=== PATIENT | male | born 1945 ===

== ENCOUNTER 2017-04-16 13:55 | Inpatient (IN) | payer OTHER, MEDICARE ==
[~2017-04-16] VITALS: Ht 182.9 cm; Wt 104.3 kg
[~2017-04-16 13:55] MED LIST: BACLOFEN10 M1 PO; CIPRO500 M1 PO; DILTIAZEM 24HR240 MG PO; HYDRALAZINE HCL50 M1 PO; LISINOPRIL40 M1 PO; LOPRESSOR50 M1 PO; METFORMIN HCL500 M3 PO; MIRALAX17 G1 PO; NEURONTIN300 M1 PO; VITAMIN D31000 UNI1 PO
--- NOTE | 2017-04-16 14:40 | ED CARDIAC/CP/PALPITATIONS ---
History of Present Illness General Chief Complaint: Palpitations Stated Complaint: MUKESH CARDIA Source: patient Exam Limitations: no limitations Allergies Coded Allergies: Penicillins (ANAPHYLAXIS 09/06/15) Reconcile Medications Amlodipine Besylate (Norvasc) 10 MG TABLET 10 MG PO DAILY BP Apixaban (Eliquis) 5 MG TABLET 5 MG PO BID Blood thinner Aspirin (Ecotrin*) 81 MG TABLET.DR 1 TAB PO DAILY HEART/BLOOD (Reported) Cholecalciferol (Vitamin D3) (Vitamin D3) 1,000 UNIT CAPSULE 1 CAP PO DAILY SUPPLEMENT (Reported) Hydralazine HCl 25 MG TABLET 25 MG PO TID blood pressure Labetalol HCl 200 MG TABLET 200 MG PO BID Blood pressure Lisinopril 40 MG TABLET 1 TAB PO DAILY BP (Reported) Metformin HCl 1,000 MG TABLET 1 TAB PO BID DM (Reported) Tamsulosin HCl 0.4 MG CAP.ER.24H 1 CAP PO QPM PROSTATE (Reported) Triage Note: RECEIVED 71 YO MALE BIBA FROM HOME WITH REPORT OF LIGHTHEADEDNESS, DIZZINESS, WEAKNESS AND SHORTNESS OF BREATH STARTED YESTERDAY, WORSE ON EXERTION TODAY. HR 38-40/MINUTE. NO C/O CHEST PAIN Triage Nurses Notes Reviewed? yes HPI: Patient is a 71-year-old male with a past medical history significant for hypertension, diabetes, diabetes, LAWSON noncompliant with CPAP, spinal stenosis status post multiple surgical repair is brought in by ambulance today due to worsening dyspnea and palpitations. Denying dyspnea on exertion roughly 2 weeks ago, he was seen and evaluated by his PCP Dr. Lopez on 04/07/16 who evaluated him and recommended follow-up as an outpatient with a project manager/design manager. He does not establish care with a project manager/design manager and does not recall who he had an appointment with. Since that time patient has noted progressive dyspnea on exertion and today for the first time he experienced dyspnea at rest and palpitations on exertion. He denies any chest pain or chest discomfort. Patient has home health aides who come daily and his aide called EMS as patient was having dyspnea on exertion. EMS reports that the patient was bradycardic to the 30s. (Vinh DUGAN,Alex) Vital Signs & Intake/Output Vital Signs & Intake/Output Vital Signs Date Time Temp Pulse Resp B/P B/P Pulse O2 O2 Flow FiO2 Mean Ox Delivery Rate 04/21 1328 144/74 04/21 1129 60 160/70 01/22 1102 160/70 04/21 0916 61 160/72 04/21 0915 61 160/72 04/21 0653 98.8 64 20 178/88 96 Room Air 04/21 0652 64 178/88 04/20 2303 98.7 62 20 164/90 94 Room Air ED Intake and Output 04/21 0000 04/20 1200 Intake Total 950 Output Total 1850 1025 Balance -900 -1025 Intake, Oral 950 Output, Urine 1850 1025 (Brandi DUGAN,Girma Merchant) Past History Travel History Traveled to [place] past 21 day No Medical History Neurological: NONE EENT: NONE Cardiovascular: hypertension, hyperlipidemia Respiratory: NONE Gastrointestinal: NONE Hepatic: NONE Renal: NONE Musculoskeletal: spinal stenosis Psychiatric: NONE Endocrine: diabetes Blood Disorders: NONE Cancer(s): NONE Surgical History Surgical History: non-contributory Psychosocial History What is your primary language Japanese Tobacco Use: Never used ETOH Use: denies use, occasional use Illicit Drug Use: denies illicit drug use Family History Family History, If Any: DAUGHTER FH: [place] (myocardial infarction), Onset: 30-40. FATHER FH: [place] (myocardial infarction), Onset: 60+. Hx Contributory? Yes (Alex Justice MD) Medical History Any Pertinent Medical History? see below for history (Brandi DUGAN,Girma Merchant) Review of Systems Review of Systems Constitutional: Reports: diaphoresis. Denies: chills, fever. EENTM: Denies: blurred vision, double vision, visual changes. Respiratory: Reports: short of breath. Denies: cough, hemoptysis, sputum production. Cardiovascular: Reports: palpitations. Denies: chest pain, peripheral edema, syncope. GI: Denies: abdominal pain, diarrhea, melena, nausea, bloody stool, vomiting. Genitourinary: Denies: dysuria, frequency, hematuria. (Alex Justice MD) Physical Exam Physical Exam General Appearance: well developed/nourished, no apparent distress, alert, awake Head: atraumatic Eyes: Bilateral: normal appearance, PERRL, EOMI, pale conjunctivae. Ears, Nose, Throat: normal pharynx, normal ENT inspection, hearing grossly normal Neck: normal inspection, supple, full range of motion Respiratory: normal breath sounds, no respiratory distress, lungs clear Cardiovascular: bradycardia, irregularly irregular Peripheral Pulses: 2+ radial (R), 2+ radial (L) Gastrointestinal: normal bowel sounds, soft, non-tender Neurologic/Psych: no motor/sensory deficits, awake, alert, oriented x 3, lip of shank cutter II- XII nml as tested Core Measures ACS in differential dx? No CVA/TIA Diagnosis No Sepsis Present: No Sepsis Focused Exam Completed? No (Alex Justice MD) Progress Differential Diagnosis: atrial fibrillation, sick sinus syndrome Initial ED EKG: AFIB Prior EKG: changed (Alex Justice MD) Plan of Care: Orders Procedure Date/time Status Heart Healthy Diet 04/21 B Active Therapeutic Exercise 04/21 UNK Complete Gait Training 04/21 UNK Complete Discharge Patient 04/21 UNK Active OXYGEN 04/19 UNK Complete OXYGEN DAILY CHARGE 04/19 UNK Complete OXYGEN 04/18 UNK Complete OXYGEN DAILY CHARGE 04/18 UNK Complete Laboratory Tests 04/21/17 0700: Anion Gap 12, Estimated GFR > 60, BUN/Creatinine Ratio 19.0, CBC w Diff NO MAN DIFF REQ, RBC 3.82 L, MCV 80.5, MCH 26.7 L, RDW 15.6 H, MPV 8.1, Gran % 72.4, Lymphocytes % 12.3 L, Monocytes % 9.9 H, Eosinophils % 5.0, Basophils % 0.4, Absolute Granulocytes 4.5, Absolute Lymphocytes 0.8 L, Absolute Monocytes 0.6, Absolute Eosinophils 0.3, Absolute Basophils 0, PUBS MCHC 33.1 Comments: 04/16/2017 3:20:23 PM patient's case discussed with Dr. Kj Ribeiro suggests admission for cardiac monitoring. Rate controlling medications should be discontinued. 04/16/2017 4:19:00 PM I have updated Flower on test results. He is without complaints currently. I have discussed his case with Viviana Garduno MD. (Brandi DUGAN,Girma Merchant) Departure Departure Disposition: STILL A PATIENT Condition: Stable Referrals: John DUGAN,Gage Dos Santos (PCP/Family) Departure Forms: Customer Survey General Discharge Information Prescriptions: Current Visit Scripts Apixaban (Eliquis) 5 MG PO BID #60 TAB Hydralazine HCl 25 MG PO TID #90 TAB Labetalol HCl 200 MG PO BID #60 TAB Amlodipine Besylate (Norvasc) 10 MG PO DAILY #30 TAB (Alex Justice MD) Departure Clinical Impression Primary Impression: Atrial fibrillation with slow ventricular response Admission Note Spoke With: Shaan DUGAN,Viviana Dos Santos Documentation of Exam: Documentation of any treatments & extenuating circumstances including Concerns Regarding Discharge (functional status, medication knowledge or non-compliance, living conditions, etc.) that warrant an admission rather than observation: Patient presents with slow atrial fibrillation, new onset. His bases the patient did very high risk of hypotension, chest pain, syncope and mortality. In addition his atrial fibrillation places him at risk of cardioembolic phenomenon including acute CVA. I feel he can be treated as an outpatient under the circumstances given the high risk of adverse cardiac event. I feel he requires hospitalization for continuous cardiac monitoring, cardiology consultation and discontinuation of any rate controlling medications. If he does not return to normal sinus rhythm than cardiac pacemaker should be considered. Patient will require anticoagulation until atrial fibrillation either resolves or becomes chronically which case he'll need to be placed on chronic anticoagulation therapy. Given his advanced age and medical comorbidities I feel his treatment could potentially be prolonged and complicated. He will require a multiple day hospitalization. Resident Co-Sign Statement Statement: ED Attending supervision documentation- [x] I saw and evaluated the patient. I have also reviewed all the pertinent lab results and diagnostic results. I agree with the findings and the plan of care as documented in the Resident's documentation. Patient evaluated by me upon arrival. Patient presents for evaluation of generalized weakness worsening over the past few days. Physical examination reveals an awake alert gentleman in no acute respiratory distress. Physical examination reveals clear breath sounds bilaterally but irregular bradycardia on auscultation of the heart. [] I have reviewed the ED Record and agree with the Resident's documentation. [] Additions or exceptions (if any) to the Resident's note and plan are summarized below: [] (Brandi DUGAN,Girma Merchant) Critical Care Note Critical Care Note Critical Care Time: non-applicable (Alex Justice MD) ED Attending Observation Initial Observation Note: I have seen and personally examined FLOWER ADAME on 04/21/17 at 1914. I agree with the current emergency department documentation. The disposition (admission or discharge) is uncertain at this time, he needs a period of observation for the following reason(s): The ED Nurse caring for this patient has been personally informed as to what the patient is being observed for. (Alex Justice MD)
[2017-04-16 15:38] LABS: ABSOLUTE BASOPHIL COUNT 0 /CUMM (0.0-0.2); ABSOLUTE EOSINOPHIL COUNT 0.1 /CUMM (0.0-0.7); ABSOLUTE GRANULOCYTE CT 4.1 /CUMM (1.4-6.5); ABSOLUTE LYMPH COUNT 0.9 /CUMM (1.2-3.4); ABSOLUTE MONOCYTE COUNT 0.5 /CUMM (0.10-0.60); BASOPHIL % 0.4 % (0.0-2.0); EOSINOPHIL % 1.8 % (0-5); GRANULOCYTE % 72.1 % (42.2-75.2); HEMATOCRIT 31.2 % (42-52); MEAN CORPUSCULAR HGB 26.3 PG (27.0-31.0); MEAN CORPUSCULAR VOLUME 82.1 FL (80.0-94.0); MEAN PLATELET VOLUME 9.4 FL (7.4-10.4); PLATELET COUNT 231 /CUMM (130-400); RBC DISTRIBUTION WIDTH 16.5 % (11.5-14.5); RED BLOOD CELL CT 3.81 /CUMM (4.70-6.10); WHITE BLOOD CELL COUNT 5.6 /CUMM (4.8-10.8)
[2017-04-16 16:00] LABS: PT 11.2 SEC (9.4-12.5); PTT 40 SEC (25-37)
--- NOTE | 2017-04-16 16:48 | Admission Certification ---
Admission Certification Certification Statement - As attending physician, I certify that at the time of - admission, based on clinical presentation, severity of - symptoms, need for further diagnostic testing and - therapeutic interventions, and risk of adverse outcomes - without in-hospital treatment, in my clinical assessment, - this patient requires an acute hospital stay for a minimum - of two nights or longer. I have also considered psychsocial - factors such as support system, advanced age, financial - issues, cognitive issues, and failed out-patient treatments, - past re-admission history, safety of patient, and lack of - compliance as applicable. Specific rationale supporting this admission is: New onset afib with slow VR
--- NOTE | 2017-04-16 16:50 | PN- Att Addend ---
Attending Addendum Attending Brief Note 71-year-old male with past medical history of diabetes on metformin, BPH, laminectomy and spinal surgery and iron deficiency anemia status post endoscopy and colonoscopy in December 2016. He is also on multiple medications presumably for difficult to control blood pressure. He takes Cardizem, metoprolol, lisinopril and hydralazine for hypertension. He comes into the ER today complaining of lightheadedness redness and dizziness and was found to be in new onset atrial fibrillation with a very slow ventricular rate of 35-45. He is mentating, hemodynamically stable with no obvious heart block on EKG. At this point will bring him into telemetry, stop the Cardizem and metoprolol and watch his heart rate off any AV gaye blocking drugs. A cardiology consult with Dr. Jerry Franco's group has been called in. We will need to start him on anticoagulation as we do not know the duration of the A. fib and his chads score requires anticoagulation. Off note he has a history of iron deficiency anemia but given the fairly normal endoscopy and colonoscopy in December will watch his crit closely.
--- NOTE | 2017-04-16 17:01 | History & Physical ---
Claude DUGAN,[facility] 04/16/17 1701: General Information and HPI History of Present Illness: Mr. Witt is a 71-year-old male with past medical history of hypertension, diabetes mellitus, spinal stenosis, LAWSON noncompliant with CPAP, BPH, and iron deficiency anemia status post endoscopy and colonoscopy in December 2016 who was brought in by ambulance with dizziness and shortness of breath. He first noticed these symptoms on and off about 2 weeks ago. However yesterday the symptoms started getting more intense with shortness of breath, increasing lightheadedness, dizziness. Today, he then noticed that he was getting the symptoms even while sitting down and so he decided to come in for further evaluation. He denies any recent medication changes besides increasing his metformin dose 2 months ago. He says he has been taking his medications appropriately and denies missing or taking too much of any medication. Denies any chest pain, abdominal pain, nausea, vomiting, fever, or chills. Allergies/Medications Allergies: Coded Allergies: Penicillins (ANAPHYLAXIS 09/06/15) Home Med list Aspirin (Ecotrin*) 81 MG TABLET.DR 1 TAB PO DAILY HEART/BLOOD (Reported) Cholecalciferol (Vitamin D3) (Vitamin D3) 1,000 UNIT CAPSULE 1 CAP PO DAILY SUPPLEMENT (Reported) Diltiazem HCl (Diltiazem 24HR ER) 240 MG CAP.ER.24H 1 CAP PO DAILY BP/HEART ( Reported) Hydralazine HCl 50 MG TABLET 1 TAB PO TID BP (Reported) Lisinopril 40 MG TABLET 1 TAB PO DAILY BP (Reported) Metformin HCl 1,000 MG TABLET 1 TAB PO BID DM (Reported) Metoprolol Tartrate (Lopressor) 50 MG TABLET 1 TAB PO BID BP (Reported) Tamsulosin HCl 0.4 MG CAP.ER.24H 1 CAP PO QPM PROSTATE (Reported) Past History Travel History Traveled to [place] past 21 day No Medical History Neurological: NONE EENT: NONE Cardiovascular: hypertension, hyperlipidemia Respiratory: NONE Gastrointestinal: NONE Hepatic: NONE Renal: NONE Musculoskeletal: spinal stenosis Psychiatric: NONE Endocrine: diabetes Blood Disorders: NONE Cancer(s): NONE Surgical History Surgical History: non-contributory Past Family/Social History Family History Relations & Conditions if any DAUGHTER FH: [place] (my[place] infarction), Onset: 30-40. FATHER FH: [place] (myocardial infarction), Onset: 60+. Psychosocial History Smoking Status: Never Smoked ETOH Use: denies use, occasional use Illicit Drug Use: denies illicit drug use Review of Systems Review of Systems Constitutional: Reports: no symptoms. EENTM: Reports: no symptoms. Cardiovascular: Reports: no symptoms. Respiratory: Reports: see HPI. GI: Reports: no symptoms. Genitourinary: Reports: no symptoms. Musculoskeletal: Reports: no symptoms. Skin: Reports: no symptoms. Neurological/Psychological: Reports: see HPI. Hematologic/Endocrine: Reports: no symptoms. Immunologic/Allergic: Reports: no symptoms. All Other Systems: Reviewed and Negative Exam & Diagnostic Data Last 24 Hrs of Vital Signs/I&O Vital Signs Date Time Temp Pulse Resp B/P B/P Pulse O2 O2 Flow FiO2 Mean Ox Delivery Rate 04/16 1551 40 18 127/70 96 Room Air 04/16 1424 98 Room Air 04/16 1402 38 18 113/66 97 Room Air Intake & Output 04/16 1600 04/16 0800 04/16 0000 Intake Total Output Total Balance Patient 230 lb Weight Weight Estimated Measurement Method Physical Exam General Appearance Alert, Oriented X3, Cooperative, No Acute Distress HEENT Atraumatic, PERRLA, EOMI Cardiovascular Normal S1, Normal S2, tameka Lungs Clear to Auscultation, Normal Air Movement Abdomen Normal Bowel Sounds, Soft, No Tenderness Neurological Normal Speech Extremities 2+ pitting edema bilaterally, venous stasis dermatitis Rectal Guiac Negative Last 24 Hrs of Labs/Donnie: Laboratory Tests 04/16/17 1515: Anion Gap 15, Estimated GFR > 60, BUN/Creatinine Ratio 32.0 H, Glucose 147 H, Calcium 9.3, Magnesium 1.8, Troponin I < 0.01, Jku-D-Akjodffited Pept 943 H, PT 11.2, INR 1.07, APTT 40 H, CBC w Diff NO MAN DIFF REQ, RBC 3.81 L, MCV 82.1, MCH 26.3 L, RDW 16.5 H, MPV 9.4, Gran % 72.1, Lymphocytes % 16.5 L, Monocytes % 9.2, Eosinophils % 1.8, Basophils % 0.4, Absolute Granulocytes 4.1, Absolute Lymphocytes 0.9 L, Absolute Monocytes 0.5, Absolute Eosinophils 0.1, Absolute Basophils 0, PUBS MCHC 32.0 L Assessment/Plan Assessment: Mr. Witt is a 71-year-old male with past medical history of hypertension, diabetes mellitus, spinal stenosis, LASWON noncompliant with CPAP, BPH, and iron deficiency anemia status post endoscopy and colonoscopy in December 2016 who was brought in by ambulance with dizziness and shortness of breath. On presentation, vital signs were HR 38, RR 18, BP 113/66, saturating 97% on room air. Laboratories were significant for white blood cell count 5.6, hemoglobin 10.0, MCV 82.1, BUN 32, creatinine 1.0, magnesium 1.8, troponin less than 0.01, BNP 993. He'll be admitted to telemetry and treated for the following problem: 1. Bradycardia 2. New onset atrial fibrillation 3. Normocytic anemia #Bradycardia: Hemodynamically stable. Likely related to medications. Differential also includes sick sinus. -Hold diltiazem, hydralazine, and metoprolol -Telemetry monitoring -Cardiology consult -EKG and trop x3 #New onset atrial fibrillation: Patient says he has never had atrial fibrillation before. Still guaiac negative. CHADS2-VASC score 3, 3.2% risk of stroke per year. -IV heparin #Normocytic anemia: Patient has history of iron deficiency anemia. He had a recent endoscopy and colonoscopy. -Continue to monitor -Consider starting iron #Chronic medical problems: -Continue vitamin D supplementation -Hold oral hypoglycemics -Accu-Cheks and insulin sliding scale DVT prophylaxis with heparin Heart healthy diet Full code As Ranked By This Provider Problem List: 1. Atrial fibrillation with slow ventricular response Core Measures/Misc (12/15) Acute Coronary Syndrome ACS Diagnosis: No Congestive Heart Failure Congestive Heart Failure Diagnosis No Cerebrovascular Accident CVA/TIA Diagnosis: No VTE (View Protocol) VTE Risk Factors Age>40 No Mechanical VTE Prophylaxis d/t N/A MechProphylax Ordered No VTE Pharm Prophylaxis d/t NA PharmProphylax ordered Sepsis (View protocol) Sepsis Present: No Isra DUGAN,Sid 04/16/172101: Resident Review Statement Resident Statement: examined this patient, discussed with paid intern, agreed with paid intern Other Findings: This is a very pleasant 71-year-old gentleman with a past medical history significant for hypertension, type 2 diabetes, spinal stenosis, obstructive sleep apnea noncompliant with CPAP, BPH, iron deficiency anemia presents with two-week history of dyspnea on exertion, and is found to be in atrial fibrillation with bradycardia. No clinical or laboratory signs of infection. Assessment * New onset atrial fibrillation with [id number] score of 3 . The accompanying bradycardia in the setting of A. fib can suggest sick sinus syndrome, however his bradycardia is most likely secondary to the Cardizem and metoprolol (AV gaye blockers). * Symptomatic bradycardia. Acute two-week history of dyspnea on exertion. Given that the patient is on 2 AV gaye blocking agent (metoprolol and cardizem) it is very likely that these medication other possible cause for his bradycardia. Given that the patient has atrial fibrillation and is presenting with bradycardia, sick sinus syndrome is always a concern, however he will have to be off AV gaye khris medications before we consider this possibility. ACS can also cause hypothermia the patient is not exhibiting any chest pain or other associated symptoms of cardiac ischemia. Hypothermia and Lyme disease are other possible causes of bradycardia. * History of iron deficiency anemia * Chronic history of hypertension. * Chronic history of BPH Plan Admit to telemetry for close cardiac monitoring Maintain Pacer pads on patient at bedside for overnight Hold off metoprolol and carvedilol Initial troponin negative, will trend Troponin and EKG 2 to rule out ACS Start heparin anticoagulation for new onset given gage score of 3. Echocardiogram am Cardio consult Hold of BP meds Lisinopril and Hydralazine, if BP goes up will slowly start with Lisinopril hold off metformin and start Novolog SS with accu checks tid, assess in the morning for Levemir based on accu check levels TSH level DVT PPX addressed by Heparin gtt CODE:AMIRAH Garduno MD,Viviana 04/17/17 0753: Attending MD Review Statement Attending Statement Attending MD Statement: examined this patient, discuss w/resident/PA/BUSINESS CONTINUITY PLANNING DIRECTOR, agreed w/resident/PA/BUSINESS CONTINUITY PLANNING DIRECTOR, reviewed EMR data (avail), discussed with nursing, reviewed images Attending Assessment/Plan: See medical brief addendum note dated 04/16/17
[2017-04-16] MEDS ORDERED: ASPIRIN EC81 M1 PO (18:23)
[2017-04-16] MEDS ORDERED: METFORMIN HCL1000 M1 PO (18:26)
[2017-04-16] MEDS ORDERED: TAMSULOSIN HCL0.4 M1 PO (18:27)
[2017-04-16 23:34] VITALS: BP 148/78
[2017-04-17 02:15] LABS: PTT 50 SEC (25-37)
[2017-04-17 03:42] LABS: ABSOLUTE BASOPHIL COUNT 0 /CUMM (0.0-0.2); ABSOLUTE EOSINOPHIL COUNT 0.1 /CUMM (0.0-0.7); ABSOLUTE GRANULOCYTE CT 3.3 /CUMM (1.4-6.5); ABSOLUTE LYMPH COUNT 0.9 /CUMM (1.2-3.4); ABSOLUTE MONOCYTE COUNT 0.4 /CUMM (0.10-0.60); BASOPHIL % 0.3 % (0.0-2.0); EOSINOPHIL % 1.8 % (0-5); GRANULOCYTE % 70.5 % (42.2-75.2); HEMATOCRIT 29.7 % (42-52); MEAN CORPUSCULAR HGB 26.5 PG (27.0-31.0); MEAN CORPUSCULAR HGB CONC 32.2 G/DL (33.0-37.0); MEAN CORPUSCULAR VOLUME 82.3 FL (80.0-94.0); MEAN PLATELET VOLUME 8.4 FL (7.4-10.4); PLATELET COUNT 221 /CUMM (130-400); RBC DISTRIBUTION WIDTH 16.2 % (11.5-14.5); RED BLOOD CELL CT 3.61 /CUMM (4.70-6.10); WHITE BLOOD CELL COUNT 4.6 /CUMM (4.8-10.8)
[2017-04-17 06:38] VITALS: BP 162/90
--- NOTE | 2017-04-17 07:02 | PN- Housestaff ---
See Addendum Subjective Follow-up For: BRADYCARDIA Tele-Events Since Last Visit: SR, 50-90 Subjective: No overnigth events. Slept well. Had some lightheadedness going to bathroom this AM. No SOB, CP, or other issues. Patient is mentioning he was supposed to go for CT scan of his face today outpatient for a fall he had recently. Wondering if it can still be done. Swelling has subsided. Review of Systems Constitutional: Reports: no symptoms. EENTM: Reports: no symptoms. Cardiovascular: Reports: see HPI. Respiratory: Reports: no symptoms. Gastrointestinal: Reports: no symptoms. Genitourinary: Reports: no symptoms. Musculoskeletal: Reports: no symptoms. Skin: Reports: no symptoms. Neurological/Psychological: Reports: no symptoms. Hematologic/Endocrine: Reports: no symptoms. Immunologic/Allergic: Reports: no symptoms. Objective Last 24 Hrs of Vital Signs/I&O Vital Signs Date Time Temp Pulse Resp B/P B/P Pulse O2 O2 Flow FiO2 Mean Ox Delivery Rate 04/17 0638 97.6 79 18 162/90 97 Nasal Cannula 04/17 0000 Nasal 1.0L Cannula 04/16 2334 96.7 71 20 148/78 98 Nasal 2.0L Cannula 04/16 2304 97.3 04/16 2020 98 Nasal 2.0L Cannula 04/16 1946 52 18 162/80 99 Nasal 2.0L Cannula 04/16 1942 93.1 53 20 199/86 99 Nasal 2.0L Cannula 04/16 1745 50 28 177/77 100 Nasal 2.0L Cannula 04/16 1551 40 18 127/70 96 Room Air 04/16 1424 98 Room Air 04/16 1402 38 18 113/66 97 Room Air Intake & Output 04/17 0800 04/17 0000 04/16 1600 Intake Total 276.8 820 Output Total Balance 276.8 820 Intake, IV 176.8 500 Intake, Oral 100 320 Number 1 Bowel Movements Patient 230 lb 230 lb Weight Weight Reported by Patient Estimated Measurement Method Physical Exam General Appearance: Alert, Oriented X3, Cooperative, No Acute Distress HEENT: Atraumatic Cardiovascular: Regular Rate, Normal S1, Normal S2 Lungs: Clear to Auscultation Abdomen: Normal Bowel Sounds, Soft, No Tenderness Extremities: stable Current Medications: Current Medications Sig/Pia Start time Last Medication Dose Route Stop Time Status Admin Acetaminophen 650 MG Q6P PRN 04/16 213 AC PO Cholecalciferol 1,000 IU DAILY 04/17 1000 AC PO Heparin Sodium 3,129 UNIT BOLUS ONE 04/17 0300 DC 04/17 (Porcine) IV 04/17 030 0427 Heparin Sodium 25,000 UNIT Q24H 04/16 1900 AC 04/16 (Porcine) IV 192 Sodium Chloride 500 ML Insulin Aspart 0 TIDAC 04/17 0800 AC SC Oxycodone HCl 5 MG Q6 PRN 04/16 2129 DC PO Oxycodone HCl 10 MG Q6P PRN 04/16 2129 DC PO Last 24 Hrs of Lab/Donnie Results Last 24 Hrs of Labs/Mics: Laboratory Tests 04/17/17 0310: Troponin I 0.02 04/17/17 0310: Anion Gap 12, Estimated GFR > 60, BUN/Creatinine Ratio 28.0 H, CBC w Diff NO MAN DIFF REQ, RBC 3.61 L, MCV 82.3, MCH 26.5 L, RDW 16.2 H, MPV 8.4, Gran % 70.5, Lymphocytes % 18.8 L, Monocytes % 8.6, Eosinophils % 1.8, Basophils % 0.3 , Absolute Granulocytes 3.3, Absolute Lymphocytes 0.9 L, Absolute Monocytes 0.4 , Absolute Eosinophils 0.1, Absolute Basophils 0, PUBS MCHC 32.2 L 04/17/17 0100: APTT 50 H 04/16/17 2150: Troponin I < 0.01 04/16/17 1515: Anion Gap 15, Estimated GFR > 60, BUN/Creatinine Ratio 32.0 H, Glucose 147 H, Calcium 9.3, Magnesium 1.8, Troponin I < 0.01, Dqj-B-Ckpryqtqigp Pept 943 H, TSH 4.320 H, Free T4 1.43, PT 11.2, INR 1.07, APTT 40 H, CBC w Diff NO MAN DIFF REQ, RBC 3.81 L, MCV 82.1, MCH 26.3 L, RDW 16.5 H, MPV 9.4, Gran % 72.1, Lymphocytes % 16.5 L, Monocytes % 9.2, Eosinophils % 1.8, Basophils % 0.4, Absolute Granulocytes 4.1, Absolute Lymphocytes 0.9 L, Absolute Monocytes 0.5, Absolute Eosinophils 0.1, Absolute Basophils 0, PUBS MCHC 32.0 L Assessment/Plan Assessment: Mr. Witt is a 71-year-old male with past medical history of hypertension, diabetes mellitus, spinal stenosis, LAWSON noncompliant with CPAP, BPH, and iron deficiency anemia status post endoscopy and colonoscopy in December 2016 who was brought in by ambulance with dizziness and shortness of breath. Problem List 1. Bradycardia 2. New onset atrial fibrillation 3. Normocytic anemia 4. Recent Fall #Bradycardia: He remained hemodynamically stable all night. His heart rate has since increased and is now in the 70 to 90s. EKG and troponins 3 negative -Hold diltiazem, hydralazine, and metoprolol -Telemetry monitoring -Appreciate cardiology recommendations -Call the PCP to confirm history #New onset atrial fibrillation: Patient says he has never had atrial fibrillation before. Still guaiac negative. CHADS2-VASC score 3, 3.2% risk of stroke per year. However, last night the patient converted to sinus rhythm. He has remained in sinus rhythm since then. -Continue apixiban #Normocytic anemia: Patient has history of iron deficiency anemia. He had a recent endoscopy and colonoscopy. -Iron studies -Continue to monitor -Consider starting iron #Recent fall: Patient says that he recently fell out of bed because of a nightmare. He is supposed to have a CT of his face today. Exam does not reveal any abnormalities. -Talk to the PCP about this. #Chronic medical problems: -Continue vitamin D supplementation -Hold oral hypoglycemics -Accu-Cheks and insulin sliding scale DVT prophylaxis with apixiban Heart healthy diet Full code Problem List: 1. Bradycardia Pain Ratin Pain Location: none Pain Goal: Remain pain free Pain Plan: see a/p Tomorrow's Labs & Rationales: cbc, bep
--- NOTE | 2017-04-17 08:39 | Cons- Cardiology ---
General Information and HPI Consulting Request Date of Consult: 04/17/17 Requested By: Manuel Garnica MD Reason for Consult: Atrial fibrillation and bradycardia Source of Information: patient, old records Exam Limitations: no limitations History of Present Illness: Mr. Witt is a 71-year-old male with past medical history of hypertension, diabetes mellitus, spinal stenosis, LAWSON noncompliant with CPAP, BPH, and iron deficiency anemia status post endoscopy and colonoscopy in December 2016 who was brought in by ambulance with dizziness and shortness of breath. He first noticed these symptoms on and off about 2 weeks ago. However yesterday the symptoms started getting more intense with shortness of breath, increasing lightheadedness, dizziness. Today, he then noticed that he was getting the symptoms even while sitting down and so he decided to come in for further evaluation. He denies any recent medication changes besides increasing his metformin dose 2 months ago. He says he has been taking his medications appropriately and denies missing or taking too much of any medication. Denies any chest pain, abdominal pain, nausea, vomiting, fever, or chills. The above information was obtained from an by the admitting resident. Patient concurs that he had some shortness of breath and lightheadedness on exertion but also on the past 4 weeks. There's been no history of syncope. No chest pain. He usually uses a walker but 4 weeks ago he was quite satisfied that he was walking the grocery store with her walker. He has had a long history of spinal stenosis and 3 operations and nearly a year at rehabilitation. I reviewed his serial records and there is echocardiogram there showed normal left ventricular systolic function with left middle hypertrophy, moderate diastolic dysfunction and pulmonary hypertension. Allergies/Medications Allergies: Coded Allergies: Penicillins (ANAPHYLAXIS 09/06/15) Home Med List: Aspirin (Ecotrin*) 81 MG TABLET.DR 1 TAB PO DAILY HEART/BLOOD (Reported) Cholecalciferol (Vitamin D3) (Vitamin D3) 1,000 UNIT CAPSULE 1 CAP PO DAILY SUPPLEMENT (Reported) Diltiazem HCl (Diltiazem 24HR ER) 240 MG CAP.ER.24H 1 CAP PO DAILY BP/HEART ( Reported) Hydralazine HCl 50 MG TABLET 1 TAB PO TID BP (Reported) Lisinopril 40 MG TABLET 1 TAB PO DAILY BP (Reported) Metformin HCl 1,000 MG TABLET 1 TAB PO BID DM (Reported) Metoprolol Tartrate (Lopressor) 50 MG TABLET 1 TAB PO BID BP (Reported) Tamsulosin HCl 0.4 MG CAP.ER.24H 1 CAP PO QPM PROSTATE (Reported) Current Medications: Current Medications Sig/Pia Start time Last Medication Dose Route Stop Time Status Admin Acetaminophen 650 MG Q6P PRN 04/16 2130 AC PO Cholecalciferol 1,000 IU DAILY 04/17 1000 AC 04/17 PO 0804 Heparin Sodium 3,129 UNIT BOLUS ONE 04/17 0300 DC 04/17 (Porcine) IV 04/17 0301 0427 Heparin Sodium 25,000 UNIT Q24H 04/16 1900 AC 04/16 (Porcine) IV 1921 Sodium Chloride 500 ML Insulin Aspart 0 TIDAC 04/17 0800 AC SC Oxycodone HCl 5 MG Q6 PRN 04/16 2129 DC PO Oxycodone HCl 10 MG Q6P PRN 04/16 2129 DC PO Review of Systems Review of Systems Constitutional: Reports: see HPI. EENTM: Denies: no symptoms. Cardiovascular: Reports: see HPI. Respiratory: Reports: see HPI. GI: Reports: see HPI. Genitourinary: Denies: no symptoms. Musculoskeletal: Denies: no symptoms. Skin: Reports: erythema. Neurological/Psychological: Denies: no symptoms. Hematologic/Endocrine: Reports: see HPI. Immunologic/Allergic: Denies: no symptoms. Past History Travel History Traveled to [place] past 21 day No Medical History Blood Transfusion Hx: No Neurological: NONE EENT: NONE Cardiovascular: hypertension, hyperlipidemia Respiratory: NONE Gastrointestinal: NONE Hepatic: NONE Renal: NONE Musculoskeletal: spinal stenosis Psychiatric: NONE Endocrine: diabetes Blood Disorders: NONE Cancer(s): NONE, ovarian cancer Surgical History Surgical History: laminectomy Family History Relations & Conditions If Any: DAUGHTER FH: [place] (myocardial infarction), Onset: 30-40. FATHER FH: [place] (myocardial infarction), Onset: 60+. Psychosocial History Where Do You Live? [facility] Services at Home: Home Health Aide, Speech Therapy Smoking Status: Never Smoked ETOH Use: denies use, occasional use Illicit Drug Use: denies illicit drug use ECHO Results (as available) Report: [facility] in 2016 showed normal left ventricular systolic function with moderate pulmonary hypertension. Exam & Diagnostic Data Vital Signs and I&O Vital Signs Date Time Temp Pulse Resp B/P B/P Pulse O2 O2 Flow FiO2 Mean Ox Delivery Rate 04/17 0638 97.6 79 18 162/90 97 Nasal Cannula 04/17 0000 Nasal 1.0L Cannula 04/16 2334 96.7 71 20 148/78 98 Nasal 2.0L Cannula 04/16 2304 97.3 04/16 2019 98 Nasal 2.0L Cannula 04/16 1946 52 18 162/80 99 Nasal 2.0L Cannula 04/16 194 93.1 53 20 199/86 99 Nasal 2.0L Cannula 04/16 1745 50 28 177/77 100 Nasal 2.0L Cannula 04/16 1551 40 18 127/70 96 Room Air 04/16 1424 98 Room Air 04/16 1402 38 18 113/66 97 Room Air Intake & Output 04/17 1600 04/17 0800 04/17 0000 04/16 1600 04/16 0800 04/16 0000 Intake Total 276.8 820 Output Total Balance 276.8 820 Intake, IV 176.8 500 Intake, Oral 100 320 Number 1 Bowel Movements Patient 230 lb 230 lb Weight Weight Reported by Patient Estimated Measurement Method Physical Exam: On general exam patient appeared comfortable. Head normocephalic atraumatic Eyes sclera anicteric conjunctiva showed no pallor extraocular muscles were normal neck revealed mild jugular venous distention no carotid bruits no thyroid masses no palpable nodes Chest lungs were clear bilaterally Heart regular rhythm with a 1/6 systolic murmur Abdomen soft no organomegaly Extremities bilateral venous stasis and stasis dermatitis Neurological no gross motor or sensory deficits Labs/Donnei Results: Laboratory Tests 04/17 04/17 04/17 04/16 0310 0310 0100 2150 Chemistry Sodium (137 - 145 mmol/L) 144 Potassium (3.5 - 5.1 mmol/L) 4.5 Chloride (98 - 107 mmol/L) 107 Carbon Dioxide (22 - 30 mmol/L) 26 Anion Gap (5 - 16) 12 BUN (9 - 20 mg/dL) 28 H Creatinine (0.7 - 1.2 mg/dL) 1.0 Estimated GFR (>60 ml/min) > 60 BUN/Creatinine Ratio (7 - 25 %) 28.0 H Troponin I (<0.11 ng/ml) 0.02 < 0.01 Coagulation APTT (25 - 37 SEC) 50 H Hematology CBC w Diff NO MAN DIFF REQ WBC (4.8 - 10.8 /CUMM) 4.6 L RBC (4.70 - 6.10 /CUMM) 3.61 L Hgb (14.0 - 18.0 G/DL) 9.6 L Hct (42 - 52 %) 29.7 L MCV (80.0 - 94.0 FL) 82.3 MCH (27.0 - 31.0 PG) 26.5 L RDW (11.5 - 14.5 %) 16.2 H Plt Count (130 - 400 /CUMM) 221 MPV (7.4 - 10.4 FL) 8.4 Gran % (42.2 - 75.2 %) 70.5 Lymphocytes % (20.5 - 51.1 %) 18.8 L Monocytes % (1.7 - 9.3 %) 8.6 Eosinophils % (0 - 5 %) 1.8 Basophils % (0.0 - 2.0 %) 0.3 Absolute Granulocytes (1.4 - 6.5 /CUMM) 3.3 Absolute Lymphocytes (1.2 - 3.4 /CUMM) 0.9 L Absolute Monocytes (0.10 - 0.60 /CUMM) 0.4 Absolute Eosinophils (0.0 - 0.7 /CUMM) 0.1 Absolute Basophils (0.0 - 0.2 /CUMM) 0 PUBS MCHC (33.0 - 37.0 G/DL) 32.2 L 04/16 1515 Chemistry Sodium (137 - 145 mmol/L) 143 Potassium (3.5 - 5.1 mmol/L) 4.9 Chloride (98 - 107 mmol/L) 105 Carbon Dioxide (22 - 30 mmol/L) 22 Anion Gap (5 - 16) 15 BUN (9 - 20 mg/dL) 32 H Creatinine (0.7 - 1.2 mg/dL) 1.0 Estimated GFR (>60 ml/min) > 60 BUN/Creatinine Ratio (7 - 25 %) 32.0 H Glucose (65 - 99 mg/dL) 147 H Calcium (8.4 - 10.2 mg/dL) 9.3 Magnesium (1.6 - 2.3 mg/dL) 1.8 Troponin I (<0.11 ng/ml) < 0.01 Qmr-A-Lwabfuztvmq Pept (<125 pg/mL) 943 H TSH (0.270 - 4.200 uIU/mL) 4.320 H Free T4 (0.78 - 2.44 ng/dL) 1.43 Coagulation PT (9.4 - 12.5 SEC) 11.2 INR (0.90 - 1.17) 1.07 APTT (25 - 37 SEC) 40 H Hematology CBC w Diff NO MAN DIFF REQ WBC (4.8 - 10.8 /CUMM) 5.6 RBC (4.70 - 6.10 /CUMM) 3.81 L Hgb (14.0 - 18.0 G/DL) 10.0 L Hct (42 - 52 %) 31.2 L MCV (80.0 - 94.0 FL) 82.1 MCH (27.0 - 31.0 PG) 26.3 L RDW (11.5 - 14.5 %) 16.5 H Plt Count (130 - 400 /CUMM) 231 MPV (7.4 - 10.4 FL) 9.4 Gran % (42.2 - 75.2 %) 72.1 Lymphocytes % (20.5 - 51.1 %) 16.5 L Monocytes % (1.7 - 9.3 %) 9.2 Eosinophils % (0 - 5 %) 1.8 Basophils % (0.0 - 2.0 %) 0.4 Absolute Granulocytes (1.4 - 6.5 /CUMM) 4.1 Absolute Lymphocytes (1.2 - 3.4 /CUMM) 0.9 L Absolute Monocytes (0.10 - 0.60 /CUMM) 0.5 Absolute Eosinophils (0.0 - 0.7 /CUMM) 0.1 Absolute Basophils (0.0 - 0.2 /CUMM) 0 PUBS MCHC (33.0 - 37.0 G/DL) 32.0 L Diagnostic Data EKG Results Admission EKG revealed atrial fibrillation with slow ventricular response Subsequent EKG shows sinus rhythm with first-degree AV block and minor ST and T- wave changes. CXR Results Clear lungs. Assessment/Plan Assessment/Plan In summary this 71-year-old gentleman was admitted for the following problems #1. Atrial fibrillation with slow ventricular response. His outpatient medication included combination of diltiazem and metoprolol. It is unclear why he was given this combination as he does not admit to see her waiter/waitress in the past. There is no history of atrial fibrillation in the past. This might be a manifestation of sick sinus syndrome. However diltiazem and metoprolol were and are being held. His present heart rate seems to be around 90. He may benefit from very low dose metoprolol tartrate 12.5 mg twice a day in order to prevent rebound tachycardia. He is currently on IV heparin. He has signed deficiency anemia. His recent GI workup incomplete endoscopy was negative for bleed. Since his creatinine is normal I would start him on Elliquis 5 mg twice a day as his chads Vasc score is greater than 2. Need to check echocardiogram. He is on watch to demonstrate signs that he may need a permanent pacemaker. #2. Hypertension. I would favor changing hydralazine to a combination of amlodipine and and angiotensin receptor khris. I would probably use Benicar 40 mg amlodipine 5 mg for blood pressure control. #3. Iron deficiency anemia #4. Spinal stenosis with multiple spinal operations #5. Dizziness and shortness of breath on exertion. His shortness of breath on exertion may represent an angina equivalent. However he is not demonstrating any objective evidence of ischemia at the moment and after the issue of sick sinus syndrome is settled he might benefit from a nuclear stress test as an outpatient. #6. Sleep apnea with probably secondary pulmonary hypertension also from diastolic left radical dysfunction. Needs to use CPAP and will obtain echocardiogram. #7. Venous stasis from chronic venous insufficiency. Consult Acknowledgment - Thank you for your consult request.
--- NOTE | 2017-04-17 10:29 | PN- Student ---
Subjective Subjective: Chief Complaint:Shortness of breath and lightheadedness on exertion. Source of History:patient,old records Limitations: NONE PMI:Gurvinder Witt is a 71 year old male with a past medical history diabetes on metformin,iron deficiency anemia post endoscopy and colonscopy December 2016,bph, spinal stenosis post laminectomy and spinal surgery,HTN on metoprolol,lisinopril and hydralazine,LAWSON not compliant w/ CPAP . Patient BIBA to the ED today with lightheadness,dizziness and shortness of breath while attempting to walk, and worsens with exertion.Patient reports that 4 weeks earlier he was able to walk around the grocery store comfortably using the cart for support but two weeks ago after approximately 100ft he began to feel fatigued and short of breath,and this was relieved but sitting for a few minutes.Today he noticed even while sitting without exertion he was feeling short of breath and lightheaded and decided to get it further evaluated.Patient reports that he is compliant with his medication and has had no recent medication changes except for an increase in his metformin dose 2 months ago.He follows up with his PCP and does not have a gypsum block setter. Review of Systems Constitutional: Reports: fatigue,light headed EENTM: Reports: no symptoms. Cardiovascular: Reports: no chest pain. Respiratory: Reports: SOB GI: Reports: no symptoms. Genitourinary: Reports: no symptoms. Musculoskeletal: Reports: no symptoms. Skin: Reports: Lower limb bilaterally skin is dry and scaly. Neurological/Psychological: Reports: see HPI. Hematologic/Endocrine: Reports: no symptoms. Immunologic/Allergic: Reports: no symptoms. All Other Systems: Reviewed and Negative Allergies: Penicillin (Anaphylaxis) Home Med list Aspirin (Ecotrin*) 81 MG TABLET.DR 1 TAB PO DAILY HEART/BLOOD (Reported) Cholecalciferol (Vitamin D3) (Vitamin D3) 1,000 UNIT CAPSULE 1 CAP PO DAILY SUPPLEMENT (Reported) Diltiazem HCl (Diltiazem 24HR ER) 240 MG CAP.ER.24H 1 CAP PO DAILY BP/HEART ( Reported) Hydralazine HCl 50 MG TABLET 1 TAB PO TID BP (Reported) Lisinopril 40 MG TABLET 1 TAB PO DAILY BP (Reported) Metformin HCl 1,000 MG TABLET 1 TAB PO BID DM (Reported) Metoprolol Tartrate (Lopressor) 50 MG TABLET 1 TAB PO BID BP (Reported) Tamsulosin HCl 0.4 MG CAP.ER.24H 1 CAP PO QPM PROSTATE (Reported) PAST MEDICAL HISTORY Medical History Neurological: NONE EENT: NONE Cardiovascular: hypertension, hyperlipidemia Respiratory: NONE Gastrointestinal: NONE Hepatic: NONE Renal: NONE Musculoskeletal: spinal stenosis Psychiatric: NONE Endocrine: diabetes Blood Disorders: iron deficinecy anemia Cancer(s): NONE Surgical History Surgical History: laminaectomy and spinal surgery for spinal stenosis Family History Relations & Conditions if any DAUGHTER [place] (myocardial infarction), Onset: 30-40. FATHER [place] (myocardial infarction), Onset: 60+ Stroke (COD 89y/o) Social History Patient lives in an assisted living home with an aide.He is able to ambulate with the aid of a walker and carry out self care independently. Smoking History -denies smoking Alcohol -denies use Recreational drugs-denies use Objective Objective: Vital Signs Date Time Temp Pulse Resp B/P B/P Pulse O2 O2 Flow FiO2 Mean Ox Delivery Rate 04/16 1745 50 28 177/77 100 Nasal 2.0L Cannula 04/16 1551 40 18 127/70 96 Room Air 04/16 1424 98 Room Air 04/16 1402 38 18 113/66 97 Room Air Physical Exam: General Appearance Alert, Oriented X3, Cooperative, No Acute Distress HEENT Atraumatic, PERRLA,conjunctiva was normal in color Cardiovascular Normal S1, Normal S2, bradycardic( pulse on admission 38 trended up to 50) Lungs Clear to Auscultation Abdomen Normal Bowel Sounds, Soft, No Tender Neurological Normal Speech Extremities 2+ pitting edema bilaterally, venous stasis dermatitis Rectal Guiac Negative Results Results: Laboratory Tests 04/16/17 1515: Anion Gap 15, Estimated GFR > 60, BUN/Creatinine Ratio 32.0 H, Glucose 147 H, Calcium 9.3, Magnesium 1.8, Troponin I < 0.01, Qwl-Q-Kflxubhfxnc Pept 943 H, TSH 4.320 H, Free T4 1.43, PT 11.2, INR 1.07, APTT 40 H, CBC w Diff NO MAN DIFF REQ, RBC 3.81 L, MCV 82.1, MCH 26.3 L, RDW 16.5 H, MPV 9.4, Gran % 72.1, Lymphocytes % 16.5 L, Monocytes % 9.2, Eosinophils % 1.8, Basophils % 0.4, Absolute Granulocytes 4.1, Absolute Lymphocytes 0.9 L, Absolute Monocytes 0.5, Absolute Eosinophils 0.1, Absolute Basophils 0, PUBS MCHC 32.0 L Assessment/Plan Assessment: Gurvinder Witt is a 71 year old male with a past medical history diabetes on metformin,iron deficiency anemia post endoscopy and colonscopy December 2016,bph, spinal stenosis post laminectomy and spinal surgery,HTN on metoprolol,lisinopril and hydralazine,LAWSON not compliant w/ CPAP brought in by ambulance with dizziness and shortness of breath. On presentation, vital signs were HR 38, RR 18, BP 113/66, saturating 97% on room air. Laboratories were significant for white blood cell count 5.6, hemoglobin 10.0, MCV 82.1, BUN 32, creatinine 1.0, magnesium 1.8, troponin less than 0.01, BNP 993. Patient's EKG showed atrial fibrillation w/accompanying bradycardia.This seems to be a new onset AFibb as patient reports that he does not have a gypsum block setter and his PCP Dr. Lopez has never mentioned those words or described anything as such with his previous EKG's and that they have all been non incidental.Patient to be admitted to telemetry. Problem List: Bradycardia Atrial Fibrillation Iron Deficiency Anemia Plan: * Bradycardia Patient presents with to the ED with a pulse of 38.His bradycardia can be attributed to his current medication as metoprolol and Diltiazem both decrease heart rate and blood pressure.Given the patients new onset A FIBB in the setting of bradycardia sick sinus syndrome is also a concern but would need to take patient of his current heart meds to determine this possibility.Given the patients initial symptoms of progressive dypsnea on exertion on can also consider ACS but unlikely as the patient has no symptoms associated with cardiac ischemia such as chest pain,retrosternal chest discomfort and his troponin lab is negative. -Hold diltiazem, hydralazine, and metoprolol -Telemetry monitoring -Cardiology consult -EKG and trop x2 -maintain pacer pads on patient overnight -start heparin IV for new onset A FIBB and CHADS VASC score of 3 * New onset atrial fibrillation: Patient says he has never had atrial fibrillation before. Guiac stool test was done and found to be negative.CHADS VASC score was 3 hence anticoagulation was started. -IV heparin -cardio consult -ECHO -Call PCP and obtain records of previous cardiac history * Iron Deficiency anemia: Patient has history of iron deficiency anemia. He had a recent endoscopy and colonoscopy in DEC 2016 that was negative for any bleeds. -Continue to monitor -Consider starting iron -Obtain Colonscopy and endoscopy report #Chronic medical problems: -Continue vitamin D supplementation -Hold oral hypoglycemics -Accu-Cheks and insulin sliding scale DVT prophylaxis with heparin Heart healthy diet Full code
--- NOTE | 2017-04-17 14:30 | PN- Student ---
Subjective Subjective: Progress Note Follow up for : Bradycardia No overnight events patient reports that he slept like a baby and has no new complaints. Review of Systems Constitutional: Reports: no symptoms. EENTM: Reports: no symptoms. Cardiovascular: Reports:no symptoms Respiratory: Reports: no symptoms. Gastrointestinal: Reports: no symptoms. Genitourinary: Reports: no symptoms. Musculoskeletal: Reports: no symptoms. Skin: Reports: no symptoms. Neurological/Psychological: Reports: no symptoms. Hematologic/Endocrine: Reports: no symptoms. Immunologic/Allergic: Reports: no symptoms. Objective Objective: Vital Signs Date Time Temp Pulse Resp B/P B/P Pulse O2 O2 Flow FiO2 Mean Ox Delivery Rate 04/17 0800 Nasal 1.0L Cannula 04/17 0638 97.6 79 18 162/90 97 Nasal Cannula 04/17 0000 Nasal 1.0L Cannula Intake & Output 04/17 0800 04/17 0000 Intake Total 276.8 820 Output Total Balance 276.8 820 Intake, IV 176.8 500 Intake, Oral 100 320 Number 1 Bowel Movements Output, Urine Patient 230 lb Weight Weight Reported by Patient Measurement Method Current Medications Sig/Pia Start time Last Medication Dose Stop Time Status Admin Acetaminophen 650 MG Q6P PRN 04/16 2130 AC (Tylenol) Cholecalciferol 1,000 IU DAILY 04/17 1000 AC 04/17 (Vitamin D) 0804 Insulin Aspart 0 TIDAC 04/17 0800 AC 04/17 (NovoLOG) 1204 Apixaban(Eliquis) 5MG BID PO 04/17/17 AC Metoprolol Tartrate 12.5 MG BID 04/17 1000 AC 04/17 (Lopressor) 0930 Physical Exam General Appearance: Alert, Oriented X3, Cooperative, No Acute Distress HEENT: PERRLA Cardiovascular: radial pulse bounding,Regular Rate, Normal S1, Normal S2 Lungs: Clear to Auscultation Abdomen: Normal Bowel Sounds, Soft, No Tenderness Extremities: Lower limbs are swollen and red bilaterally with skin changes that point toward venous stasis changes,+1 non pitting edema. Results Results: Laboratory Tests 04/17/17 0310: Troponin I 0.02 04/17/17 0310: Anion Gap 12, Estimated GFR > 60, BUN/Creatinine Ratio 28.0 H, CBC w Diff NO MAN DIFF REQ, RBC 3.61 L, MCV 82.3, MCH 26.5 L, RDW 16.2 H, MPV 8.4, Gran % 70.5, Lymphocytes % 18.8 L, Monocytes % 8.6, Eosinophils % 1.8, Basophils % 0.3 , Absolute Granulocytes 3.3, Absolute Lymphocytes 0.9 L, Absolute Monocytes 0.4 , Absolute Eosinophils 0.1, Absolute Basophils 0, PUBS MCHC 32.2 L 04/17/17 0100: APTT 50 H 04/16/17 2150: Troponin I < 0.01 04/16/17 1515: Anion Gap 15, Estimated GFR > 60, BUN/Creatinine Ratio 32.0 H, Glucose 147 H, Calcium 9.3, Magnesium 1.8, Troponin I < 0.01, Crc-J-Oxwtrfosodb Pept 943 H, TSH 4.320 H, Free T4 1.43, PT 11.2, INR 1.07, APTT 40 H, CBC w Diff NO MAN DIFF REQ, RBC 3.81 L, MCV 82.1, MCH 26.3 L, RDW 16.5 H, MPV 9.4, Gran % 72.1, Lymphocytes % 16.5 L, Monocytes % 9.2, Eosinophils % 1.8, Basophils % 0.4, Absolute Granulocytes 4.1, Absolute Lymphocytes 0.9 L, Absolute Monocytes 0.5, Absolute Eosinophils 0.1, Absolute Basophils 0, PUBS MCHC 32.0 L Assessment/Plan Assessment: Gurvinder Witt is a 71 year old male with a past medical history diabetes on metformin,iron deficiency anemia post endoscopy and colonscopy December 2016,bph, spinal stenosis post laminectomy and spinal surgery,HTN on metoprolol,lisinopril and hydralazine,LAWSON not compliant w/ CPAP brought in by ambulance with dizziness and shortness of breath. Problem List * Bradycardia * New Onset Atrial Fibrillation * Iron Deficiency Anemia Plan: * Bradycardia: Patient remained stable all night.His heart rate has since increased and is now in 70-90 range.Rhythm has converted to sinus.EKG and Troponin x3 was found to be negative negating that his event was ACS related. -continue telemetry -hold diltiazem and hydralazine -appreciate cardiology reccomendations -call PCP to confirm PMH * New onset A FIBB Patient reports that he does not have a history of A Fibb.Guiac is negative.CHADS-VASC score is 3.Patient last night has converted to sinus rhythm last night and has remained that way to date. -continue anticoagulation Iron Deficiency Anemia -Continue to monitor #Chronic medical problems: -Continue vitamin D supplementation -Accu-Cheks and insulin sliding scale DVT prophylaxis with apixiban Heart healthy diet Full code
--- NOTE | 2017-04-17 15:32 | CT SCAN REPORT ---
EXAMINATION: CT SINUS WITHOUT CONTRAST CLINICAL INFORMATION: Facial swelling. Status post fall at home. COMPARISON: None TECHNIQUE: CT of the maxillofacial bones was performed without intravenous contrast. Multiplanar reformats were rendered and reviewed. DLP: 758 mGy-cm FINDINGS: There is no preseptal soft tissue swelling. The orbital schuster and orbital rims are intact. There is no infiltration of the intraorbital fat or evidence of retrobulbar hematoma. The extraocular muscles and optic nerve sheath complexes are symmetric and normal in appearance. The globes are normal and symmetric. The zygomas and zygomaticomaxillary buttresses are intact. The nasal bones and ufpf-hpkhea-qmheoco complex are intact. The maxillary alveolus and hard palate are intact. The mandible is intact with mandibular condyles normally positioned within the glenoid fossa. The osseous structures of the central skull base are intact. The left maxillary sinus is completely opacified and the schuster are sclerotic and thickened reflecting osteitis from chronic inflammation. The left ostiomeatal unit is opacified. An underlying polypoid lesion is not excluded. There is lucency surrounding the roots of ADA 14, 15, and 16 compatible with apical abscess/granuloma with dehiscence into the floor of the maxillary sinus in addition to dehiscence of the buccal plate. Lucency surrounding the roots of ADA 1, 2, and 3 is also noted without extension into the maxillary sinus. Numerous large carious lesions are present predominantly involving the posterior maxillary dentition. IMPRESSION: 1. No evidence of maxillofacial fracture. The orbital schuster and rims are intact. 2. 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 An underlying polyp cannot be excluded. 3. Severe periodontal, periapical, and endodontal disease predominantly involving the left and right maxillary dentition with apical abscess/granuloma extending through the floor of the left maxillary sinus.
--- NOTE | 2017-04-17 18:46 | ECHOCARDIOGRAM REPORT ---
FLOWER ADAME Age: 71 : 1945 Gender: M Exam Date: 04/17/2017 11:27 Exam Location: [address] Ht (in): 72 Wt (lb): 230 BSA: 2.33 BP: 162 / 90 Ordering Physician: Sid Dhaliwal MD Referring Physician: Sid Dhaliwal MD Technologist: Bernardino Vázquez [facility] Room Number: 172-1 Indications: AFIB/FLUTTER Rhythm: Sinus Technical Quality: fair FINDINGS Left Ventricle Normal size left ventricle. Left ventricular wall thickness mildly increased. Normal left ventricular ejection fraction estimated at 60-65%. "pseudonormal" filling pattern of the left ventricle for age (stage 2 diastolic dysfunction). Right Ventricle Normal right ventricular size and function. Right Atrium Normal right atrial size. Left Atrium Mild left atrial dilatation. Mitral Valve Mild mitral annular calcification. Mild mitral regurgitation. Aortic Valve Aortic valve is normal in structure and function. Tricuspid Valve Tricuspid valve is normal in structure and function. Mild tricuspid regurgitation. Right ventricular systolic pressure estimated to be elevated at 50 mmHg. Pulmonic Valve Pulmonic valve not well visualized, grossly normal. Pericardium No pericardial effusion. Great Vessels Normal size aortic root and proximal ascending aorta. CONCLUSIONS Normal left ventricular systolic function with mild concentric hypertrophy. Mild left atrial enlargement. Type2 diastolic dysfunction. Moderate Pulmonary hypertension. Jerry Garduno M.D. (Electronically Signed) Final Date: 17 April 2017 18:45 MEASUREMENTS (Male / Female) Normal Values 2D ECHO LV Diastolic Diameter PLAX 5.0 cm 4.2 - 5.9 / 3.9 - 5.3 cm LV Systolic Diameter PLAX 3.4 cm 2.1 - 4.0 cm LV Fractional Shortening PLAX 32.0 % 25 - 46 % LV Ejection Fraction 2D Teich 59.9 % IVS Diastolic Thickness 1.3 cm LVPW Diastolic Thickness 1.3 cm LV Relative Wall Thickness 0.5 LVOT Diameter 1.7 cm Aortic Root Diameter 3.2 cm LA Systolic Diameter LX 4.3 cm 3.0 - 4.0 / 2.7 - 3.8 cm LA Volume 93.0 cm 18 - 58 / 22 - 52 cm Ascending Aorta Diameter 3.1 cm DOPPLER AV Peak Velocity 176.0 cm/s AV Peak Gradient 12.4 mmHg AV Mean Velocity 112.0 cm/s AV Mean Gradient 6.0 mmHg AV Velocity Time Integral 34.8 cm LVOT Peak Velocity 114.0 cm/s LVOT Peak Gradient 5.2 mmHg LVOT Mean Velocity 70.4 cm/s LVOT Mean Gradient 2.0 mmHg LVOT Velocity Time Integral 25.5 cm LVOT Stroke Volume 57.9 cm AV Area Cont Eq vti 1.7 cm AV Area Cont Eq pk 1.5 cm MV Peak Velocity 134.0 cm/s MV Peak Gradient 7.2 mmHg MV Mean Velocity 79.1 cm/s MV Mean Gradient 3.0 mmHg Mitral E Point Velocity 124.0 cm/s Mitral A Point Velocity 110.0 cm/s Mitral E to A Ratio 1.1 MV PHT Velocity 139.0 cm/s MV Deceleration [place] 661.0 cm/s MV Pressure Half Time 63.1 ms MV Area PHT 3.5 cm MV Deceleration Time 246.0 ms TR Peak Velocity 336.0 cm/s TR Peak Gradient 45.2 mmHg Right Atrial Pressure 5.0 mmHg Pulmonary Artery Systolic Pressu 50.2 mmHg Right Ventricular Systolic Press 50.2 mmHg PV Peak Velocity 97.9 cm/s PV Peak Gradient 3.8 mmHg PV Mean Velocity 63.8 cm/s PV Mean Gradient 2.0 mmHg PV Velocity Time Integral 21.3 cm LV E' Lateral Velocity 9.2 cm/s Mitral E to LV E' Lateral Ratio 13.5 LV E' Septal Velocity 8.7 cm/s Mitral E to LV E' Septal Ratio 14.3
[2017-04-18 01:21] VITALS: BP 168/90
[2017-04-18 06:09] VITALS: BP 170/84
--- NOTE | 2017-04-18 07:02 | PN- Housestaff ---
See Addendum Subjective Follow-up For: bRADYCARIDA Tele-Events Since Last Visit: NR, 50-80 Subjective: No overnight events. He slept well. No CP, SOB, or other issues. Review of Systems Constitutional: Reports: no symptoms. EENTM: Reports: no symptoms. Cardiovascular: Reports: no symptoms. Respiratory: Reports: no symptoms. Gastrointestinal: Reports: no symptoms. Genitourinary: Reports: no symptoms. Musculoskeletal: Reports: no symptoms. Skin: Reports: no symptoms. Neurological/Psychological: Reports: no symptoms. Hematologic/Endocrine: Reports: no symptoms. Immunologic/Allergic: Reports: no symptoms. Objective Last 24 Hrs of Vital Signs/I&O Vital Signs Date Time Temp Pulse Resp B/P B/P Pulse O2 O2 Flow FiO2 Mean Ox Delivery Rate 04/18 0609 98.8 71 18 170/84 96 04/18 0133 99.5 04/18 0121 66 168/90 04/18 0019 99.9 04/18 0000 Nasal 2.0L Cannula 04/17 2217 99.3 86 16 94 Nasal 1.0L Cannula 04/17 2054 87 172/90 04/17 1900 87 172/90 04/17 1600 Nasal 1.0L Cannula 04/17 1206 87 172/90 04/17 0930 94 186/90 04/17 0800 Nasal 1.0L Cannula Intake & Output 04/18 0800 04/18 0000 04/17 1600 Intake Total 300 450 Output Total 700 850 500 Balance -400 -850 -50 Intake, Oral 300 450 Number 1 1 Bowel Movements Output, Urine 700 850 500 Physical Exam General Appearance: Alert, Oriented X3, Cooperative, No Acute Distress Cardiovascular: Regular Rate, Normal S1, Normal S2 Lungs: Clear to Auscultation Abdomen: Normal Bowel Sounds, Soft, No Tenderness Extremities: stable Current Medications: Current Medications Sig/Pia Start time Last Medication Dose Route Stop Time Status Admin Acetaminophen 650 MG ONCE ONE 04/18 0015 DC 04/18 PO 04/18 001 0019 Acetaminophen 650 MG Q6P PRN 04/16 2130 AC PO Amlodipine Besylate 5 MG DAILY 04/17 1145 AC 04/17 PO 1206 Apixaban 5 MG BID 04/17 1000 AC 04/17 PO 2055 Cholecalciferol 1,000 IU DAILY 04/17 1000 AC 04/17 PO 0804 Heparin Sodium 25,000 UNIT Q24H 04/16 1900 DC 04/16 (Porcine) IV 1921 Sodium Chloride 500 ML Insulin Aspart 0 TIDAC 04/17 0800 AC 04/17 SC 1204 Lisinopril 40 MG DAILY 04/18 1000 AC PO Lisinopril 40 MG ONCE ONE 04/17 1315 DC 04/17 PO 04/17 1316 1900 Losartan Potassium 100 MG DAILY 04/17 1146 DC PO Metoprolol Tartrate 12.5 MG BID 04/17 1000 AC 04/17 PO 2054 Patient Medication 1 ED ONE ONE 04/17 1145 DC 04/17 Teaching ED 04/17 1146 1204 Last 24 Hrs of Lab/Donnie Results Last 24 Hrs of Labs/Mics: Laboratory Tests 04/18/17 0610: Sodium Pending, Potassium Pending, Chloride Pending, Carbon Dioxide Pending, Anion Gap Pending, BUN Pending, Creatinine Pending, BUN/Creatinine Ratio Pending , CBC w Diff Pending, WBC Pending, RBC Pending, Hgb Pending, Hct Pending, MCV Pending, MCH Pending, RDW Pending, Plt Count Pending, MPV Pending, PUBS MCHC Pending 04/17/17 0900: APTT Cancelled Assessment/Plan Assessment: Mr. Witt is a 71-year-old male with past medical history of hypertension, diabetes mellitus, spinal stenosis, LAWSON noncompliant with CPAP, BPH, and iron deficiency anemia status post endoscopy and colonoscopy in December 2016 who was brought in by ambulance with dizziness and shortness of breath. Problem List 1. Bradycardia 2. New onset atrial fibrillation 3. Normocytic anemia 4. Recent Fall 5. Hypertension #Bradycardia: He remained hemodynamically stable. His heart rate has since increased and is now in the 70 to 90s. EKG and troponins 3 negative. -Stop diltiazem, hydralazine, and metoprolol -Telemetry monitoring -Appreciate cardiology recommendations #New onset atrial fibrillation: Patient says he has never had atrial fibrillation before. Still guaiac negative. CHADS2-VASC score 3, 3.2% risk of stroke per year. However, last night the patient converted to sinus rhythm. He has remained in sinus rhythm since then. -Continue apixiban #Hypertension: Patient has been hypertensive, this morning 170/84. -Appreciate cardiology recommendations -Continue lisinopril and amlodipine -Start labetelol #Normocytic anemia: Patient has history of iron deficiency anemia. He had a recent endoscopy and colonoscopy. Iron studies normal here. -Continue to monitor #Recent fall: Patient says that he recently fell out of bed because of a nightmare. We performed the facial CT yesterday that showed severe dental disease but no acute fracture. -Encourage patient to have dental follow-up #Chronic medical problems: -Continue vitamin D supplementation -Hold oral hypoglycemics -Accu-Cheks and insulin sliding scale DVT prophylaxis with apixiban Heart healthy diet Full code Problem List: 1. Bradycardia Pain Ratin Pain Location: none Pain Goal: Remain pain free Pain Plan: see a/p Tomorrow's Labs & Rationales: none
--- NOTE | 2017-04-18 07:35 | PN- Student ---
Subjective Subjective: Progress Note: Bradycardia Tele Events: NS ,50-90 No overnight events.Patient reports that he slept well is in no pain. Review of Systems Constitutional: Reports: no symptoms. EENTM: Reports: no symptoms. Cardiovascular: Reports: no symptoms. Respiratory: Reports: no symptoms. Gastrointestinal: Reports: no symptoms. Genitourinary: Reports: no symptoms. Musculoskeletal: Reports: no symptoms. Skin: Reports: no symptoms. Neurological/Psychological: Reports: no symptoms. Hematologic/Endocrine: Reports: no symptoms. Immunologic/Allergic: Reports: no symptoms. Objective Objective: Vital Signs Date Time Temp Pulse Resp B/P B/P Pulse O2 O2 Flow FiO2 Mean Ox Delivery Rate 04/18 0609 98.8 71 18 170/84 96 04/18 0133 99.5 04/18 0121 66 168/90 04/18 0019 99.9 04/18 0000 Nasal 2.0L Cannula 04/17 2217 99.3 86 16 94 Nasal 1.0L Cannula 04/17 2054 87 172/90 04/17 1900 87 172/90 Intake & Output 04/18 1600 04/18 0800 04/18 0000 Intake Total 300 Output Total 700 850 Balance -400 -850 Intake, Oral 300 Number 1 Bowel Movements Output, Urine 700 850 Physical Exam: General Appearance: cachectic,Alert, Oriented X3, Cooperative, No Acute Distress Cardiovascular: Regular Rate, Normal S1, Normal S2 Lungs: Clear to Auscultation Abdomen: Normal Bowel Sounds, Soft, tender Extremities: stable Current Medications Sig/Pia Start time Last Medication Dose Route Stop Time Status Admin Acetaminophen 650 MG ONCE ONE 04/18 0015 DC 04/18 PO 04/18 0016 0019 Acetaminophen 650 MG Q6P PRN 04/16 2130 AC PO Amlodipine Besylate 5 MG DAILY 04/17 1145 AC 04/17 PO 1206 Apixaban 5 MG BID 04/17 1000 AC 04/17 PO 2055 Cholecalciferol 1,000 IU DAILY 04/17 1000 AC 04/17 PO 0804 Heparin Sodium 25,000 UNIT Q24H 04/16 1900 DC 04/16 (Porcine) IV 1921 Sodium Chloride 500 ML Insulin Aspart 0 TIDAC 04/17 0800 AC 04/17 SC 1204 Lisinopril 40 MG DAILY 04/18 1000 AC PO Lisinopril 40 MG ONCE ONE 04/17 1315 DC 04/17 PO 04/17 1316 1900 Losartan Potassium 100 MG DAILY 04/17 1146 DC PO Metoprolol Tartrate 12.5 MG BID 04/17 1000 AC 04/17 PO 2053 Patient Medication 1 ED ONE ONE 04/17 1145 CO 04/17 Teaching ED 04/17 1146 1204 Results Results: Laboratory Tests 04/18/17 0610: Anion Gap 12, Estimated GFR > 60, BUN/Creatinine Ratio 20.9, Iron 54, TIBC 397, Ferritin Pending, CBC w Diff Pending, WBC Pending, RBC Pending, Hgb Pending, Hct Pending, MCV Pending, MCH Pending, RDW Pending, Plt Count Pending, MPV Pending, PUBS MCHC Pending 04/17/17 0900: APTT Cancelled 04/17/17 0310: Troponin I 0.02 04/17/17 0310: Anion Gap 12, Estimated GFR > 60, BUN/Creatinine Ratio 28.0 H, CBC w Diff NO MAN DIFF REQ, RBC 3.61 L, MCV 82.3, MCH 26.5 L, RDW 16.2 H, MPV 8.4, Gran % 70.5, Lymphocytes % 18.8 L, Monocytes % 8.6, Eosinophils % 1.8, Basophils % 0.3 , Absolute Granulocytes 3.3, Absolute Lymphocytes 0.9 L, Absolute Monocytes 0.4 , Absolute Eosinophils 0.1, Absolute Basophils 0, PUBS MCHC 32.2 L 04/17/17 0100: APTT 50 H 04/16/17 2150: Troponin I < 0.01 04/16/17 1515: Anion Gap 15, Estimated GFR > 60, BUN/Creatinine Ratio 32.0 H, Glucose 147 H, Calcium 9.3, Magnesium 1.8, Troponin I < 0.01, Dmt-A-Kzkwxuaarxb Pept 943 H, TSH 4.320 H, Free T4 1.43, PT 11.2, INR 1.07, APTT 40 H, CBC w Diff NO MAN DIFF REQ, RBC 3.81 L, MCV 82.1, MCH 26.3 L, RDW 16.5 H, MPV 9.4, Gran % 72.1, Lymphocytes % 16.5 L, Monocytes % 9.2, Eosinophils % 1.8, Basophils % 0.4, Absolute Granulocytes 4.1, Absolute Lymphocytes 0.9 L, Absolute Monocytes 0.5, Absolute Eosinophils 0.1, Absolute Basophils 0, PUBS MCHC 32.0 L Assessment/Plan Assessment: Gurvinder Witt is a 71 year old male with a past medical history diabetes on metformin,iron deficiency anemia post endoscopy and colonscopy December 2016,bph, spinal stenosis post laminectomy and spinal surgery,HTN on metoprolol,lisinopril and hydralazine,LAWSON not compliant w/ CPAP brought in by ambulance with dizziness and shortness of breath. Problem List * Bradycardia * New Onset Atrial Fibrillation * hypertention * Anemia * Recent Fall Plan: * Bradycardia: Patient remained stable all night.His heart rate has since increased and is now in 70-90 range.Rhythm has converted to sinus.EKG and Troponin x3 was found to be negative negating that his event was ACS related. -continue telemetry -hold diltiazem and hydralazine -appreciate cardiology reccomendations -continue low dose metoprolol 12.5mg -nuclear stress test outpatient -look into reinstating CPAP * New onset A FIBB Patient reports that he does not have a history of A Fibb.Guiac is negative.CHADS-VASC score is 3.Patient last night has converted to sinus rhythm last night and has remained that way to date. -continue anticoagulation with apixiban * Hypertention The patients BP this morning was 170/84 indicating that he is hypertensive as per cardiology reccomendations he was started on amlodipine + lisinopril. -appreciate cardiology reccomendations -continue amlodipine + lisinopril * Iron Deficiency Anemia -Continue to monitor * Recent Fall Patient reports that last Friday he had a bad dream and rolled out of bed hitting his head.His PCP on examination felt a bump around his left maxillary sinus and requested a facial CT.This was confirmed with PCP.Facial CT was performed yesterday and revealed to maxillofacial fracture,orbital schuster and rims are intact.There was severe peridontal,periapical and endodontal disease predominatly involving left and right maxillary dentation with apical abcess/ granuloma extending to the floor of the left maxillary sinus. -outpatient dentistryfollow up -report to PCP. #Chronic medical problems: -Continue vitamin D supplementation -Accu-Cheks and insulin sliding scale DVT prophylaxis with apixiban Heart healthy diet Full code
[2017-04-18 08:05] LABS: ABSOLUTE BASOPHIL COUNT 0 /CUMM (0.0-0.2); ABSOLUTE EOSINOPHIL COUNT 0.1 /CUMM (0.0-0.7); ABSOLUTE GRANULOCYTE CT 3.9 /CUMM (1.4-6.5); ABSOLUTE LYMPH COUNT 0.9 /CUMM (1.2-3.4); ABSOLUTE MONOCYTE COUNT 0.5 /CUMM (0.10-0.60); BASOPHIL % 0.4 % (0.0-2.0); EOSINOPHIL % 1.1 % (0-5); GRANULOCYTE % 72.4 % (42.2-75.2); HEMATOCRIT 28.8 % (42-52); MEAN CORPUSCULAR HGB 26.9 PG (27.0-31.0); MEAN CORPUSCULAR HGB CONC 33.2 G/DL (33.0-37.0); MEAN CORPUSCULAR VOLUME 80.9 FL (80.0-94.0); MEAN PLATELET VOLUME 8.7 FL (7.4-10.4); PLATELET COUNT 218 /CUMM (130-400); RBC DISTRIBUTION WIDTH 16.1 % (11.5-14.5); RED BLOOD CELL CT 3.56 /CUMM (4.70-6.10); WHITE BLOOD CELL COUNT 5.3 /CUMM (4.8-10.8)
[2017-04-18] MEDS ORDERED: AMLODIPINE BESYL5 M1 PO (11:07)
[2017-04-18] MEDS ORDERED: ELIQUIS5 M1 PO (11:07)
[2017-04-18] MEDS ORDERED: LABETALOL HCL200 M1 PO (11:07)
--- NOTE | 2017-04-18 11:09 | Patient Discharge Instructions ---
Discharge Instructions General Discharge Information You were seen/treated for: Atrial fibrillation, bradycardia Watch for these problems: Chest pain, fever, shortness of breath, palpitations Special Instructions: Please take all medications as directed. Please follow-up with primary care. Please follow-up with cardiology. Please follow up with Dr. Coelman pulmonlogist for sleep study after discharge Diet Continue normal diet: No Recommended Diet: Diabetic, Heart Healthy Activity Full Activity/No Limits: Yes Acute Coronary Syndrome Inclusion Criteria At DC or during hospital stay patient has or had the following: ACS DIAGNOSIS No Discharge Core Measures Meds if any: Prescribed or Continued at Discharge Meds if any: NOT Prescribed or Continued at Discharge Congestive Heart Failure Inclusion Criteria At DC or during hospital stay patient has or had the following: CHF DIAGNOSIS No Discharge Core Measures Meds if any: Prescribed or Continued at Discharge Meds if any: NOT Prescribed or Continued at Discharge Cerebrovascular accident Inclusion Criteria At DC or during hospital stay patient has or had the following: CVA/TIA Diagnosis No Discharge Core Measures Meds if any: Prescribed or Continued at Discharge Meds if any: NOT Prescribed or Continued at Discharge Venous thromboembolism Inclusion Criteria VTE Diagnosis No VTE Type NONE VTE Confirmed by (Test) NONE Discharge Core Measures - Per Current guidelines, there needs to be overlap - treatment for the first 5 days of Warfarin therapy. - If discharged on Warfarin prior to 5 days of - overlap therapy, the patient will need to be - assessed for post discharge needs including - *Post discharge parental anticoagulation - *Warfarin and/or parental anticoagulation education - *Follow up date to check INR post discharge At least 5 days overlap therapy as Inpatient No Meds if any: Prescribed or Continued at Discharge Note: Overlap Therapy is Warfarin and Anticoagulant Meds if any: NOT Prescribed or Continued at Discharge
--- NOTE | 2017-04-18 11:20 | PN- Cardiology ---
Subjective Subjective: The patient is awake, alert The events of the last 24 hours as well as telemetry were reviewed. Review of Systems: The review of systems is negative for chest pains, palpitations nor lightheadedness. The remainder of the 14 point review of systems is noncontributory with the exception of above. Objective Vital Signs and I&Os Vital Signs Date Time Temp Pulse Resp B/P B/P Pulse O2 O2 Flow FiO2 Mean Ox Delivery Rate 04/18 0957 70 200/90 04/18 0957 70 200/90 04/18 0609 98.8 71 18 170/84 96 04/18 0133 99.5 04/18 0121 66 168/90 04/18 0019 99.9 04/18 0000 Nasal 2.0L Cannula 04/17 2217 99.3 86 16 94 Nasal 1.0L Cannula 04/17 2054 87 172/90 04/17 1900 87 172/90 04/17 1600 Nasal 1.0L Cannula 04/17 1206 87 172/90 Intake & Output 04/18 1600 04/18 0800 04/18 0000 04/17 1600 04/17 0800 04/17 0000 Intake Total 300 450 276.8 820 Output Total 700 850 500 Balance -400 -850 -50 276.8 820 Intake, IV 176.8 500 Intake, Oral 300 450 100 320 Number 1 1 1 Bowel Movements Output, Urine 700 850 500 Patient 230 lb Weight Weight Reported by Patient Measurement Method Physical Exam: General: Nontoxic, no apparent distress. HEENT: Sclera and conjunctiva within normal limits, without xanthelasmas. Neck: Carotids 2+ without bruits. Respiratory: Clear to auscultation, air movement is good, without accessory respiratory muscle use. Heart: Regular rate and rhythm, 2/6 systolic ejection murmur at left sternal border, without JVD. Abdomen: Soft, nontender, no masses, normoactive bowel sounds. Extremities: Without clubbing, cyanosis, without edema. Neuro: Nonfocal exam, strength, 5 out of 5 Skin: Within normal limits without lesions. Psych: Mood and affect: Normal Current Medications: Current Medications Sig/Pia Start time Last Medication Dose Route Stop Time Status Admin Acetaminophen 650 MG ONCE ONE 04/18 14 DC 04/18 PO 04/18 15 0019 Acetaminophen 650 MG Q6P PRN 01/17 2130 AC PO Amlodipine Besylate 5 MG DAILY 04/17 1145 AC 04/18 PO 0957 Apixaban 5 MG BID 04/17 1000 AC 04/18 PO 0957 Cholecalciferol 1,000 IU DAILY 04/17 1000 AC 04/18 PO 0957 Insulin Aspart 0 TIDAC 04/17 0800 AC 04/17 SC 1204 Labetalol HCl 200 MG BID 04/18 1045 AC PO Lisinopril 40 MG DAILY 04/18 1000 AC PO Lisinopril 40 MG ONCE ONE 04/17 1315 DC 04/17 PO 04/17 1316 1900 Losartan Potassium 100 MG DAILY 04/17 1146 DC PO Metoprolol Tartrate 12.5 MG BID 04/17 1000 DC 04/18 PO 0957 Patient Medication 1 ED ONE ONE 04/17 1145 MI 04/17 [facility] ED 04/17 1146 1204 Results Last 48 Hrs of Labs/Mics: Laboratory Tests 04/18/17 0610: Anion Gap 12, Estimated GFR > 60, BUN/Creatinine Ratio 20.9, Iron 54, TIBC 397, Ferritin 23.9, Total Beta HCG NEGATIVE, CBC w Diff NO MAN DIFF REQ, RBC 3.56 L, MCV 80.9, MCH 26.9 L, RDW 16.1 H, MPV 8.7, Gran % 72.4, Lymphocytes % 16.0 L, Monocytes % 10.1 H, Eosinophils % 1.1, Basophils % 0.4, Absolute Granulocytes 3.9, Absolute Lymphocytes 0.9 L, Absolute Monocytes 0.5, Absolute Eosinophils 0.1, Absolute Basophils 0, PUBS MCHC 33.2 04/17/17 0900: APTT Cancelled 04/17/17 0310: Troponin I 0.02 04/17/17 0310: Anion Gap 12, Estimated GFR > 60, BUN/Creatinine Ratio 28.0 H, CBC w Diff NO MAN DIFF REQ, RBC 3.61 L, MCV 82.3, MCH 26.5 L, RDW 16.2 H, MPV 8.4, Gran % 70.5, Lymphocytes % 18.8 L, Monocytes % 8.6, Eosinophils % 1.8, Basophils % 0.3 , Absolute Granulocytes 3.3, Absolute Lymphocytes 0.9 L, Absolute Monocytes 0.4 , Absolute Eosinophils 0.1, Absolute Basophils 0, PUBS MCHC 32.2 L 04/17/17 0100: APTT 50 H 04/16/17 2150: Troponin I < 0.01 04/16/17 1515: Anion Gap 15, Estimated GFR > 60, BUN/Creatinine Ratio 32.0 H, Glucose 147 H, Calcium 9.3, Magnesium 1.8, Troponin I < 0.01, Anx-K-Nsuivikrimt Pept 943 H, TSH 4.320 H, Free T4 1.43, PT 11.2, INR 1.07, APTT 40 H, CBC w Diff NO MAN DIFF REQ, RBC 3.81 L, MCV 82.1, MCH 26.3 L, RDW 16.5 H, MPV 9.4, Gran % 72.1, Lymphocytes % 16.5 L, Monocytes % 9.2, Eosinophils % 1.8, Basophils % 0.4, Absolute Granulocytes 4.1, Absolute Lymphocytes 0.9 L, Absolute Monocytes 0.5, Absolute Eosinophils 0.1, Absolute Basophils 0, PUBS MCHC 32.0 L Assessment/Plan Assessment/Plan #1. Atrial fibrillation with slow ventricular response: The bradycardic response has improved with holding the combination of diltiazem and metoprolol, and the patient has spontaneously converted to sinus rhythm. He was reinitiated on a low-dose metoprolol; however, has significant hypertension with the same given this, we will change his regimen to labetalol. We will continue with full anticoagulation. #2. Hypertension: We will continue the current medication regimen and change metoprolol to labetalol. We will follow-up as an outpatient. #3. Iron deficiency anemia: Appreciate GI input #4. Spinal stenosis with multiple spinal operations Continue with physical therapy #5. Sleep apnea: Baby to contribute factor for his underlying atrial fibrillation. Encouragement for compliance with CPAP was given. Continue telemetry? No
--- NOTE | 2017-04-18 12:26 | RADIOLOGY REPORT ---
EXAMINATION: XR CHEST CLINICAL INFORMATION: 71-year-old male patient with shortness of breath. CHF. COMPARISON: Chest x-ray on 09/06/2015. TECHNIQUE: AP and lateral erect views of the chest. FINDINGS: The heart remains enlarged. There is central pulmonary vascular congestion small bilateral pleural effusions, and mild interstitial edema consistent with CHF. IMPRESSION: CHF with small pleural effusions.
[2017-04-18 13:21] VITALS: BP 166/82
--- NOTE | 2017-04-18 15:06 | Event Note ---
Event Note Event Note: S: Patient was complaining of shortness of breath this morning. B: Mr. Witt is a 71-year-old male with past medical history of hypertension, diabetes mellitus, spinal stenosis, LAWSON noncompliant with CPAP, BPH, and iron deficiency anemia status post endoscopy and colonoscopy in December 2016 here with new onset atrial fibrillation and bradycardia. TTE recently showed stage II diastolic dysfunction. A/R: Chest x-ray was obtained that showed congestive heart failure with pulmonary vascular congestion. We were initially planning on discharging the patient today but because of this instead we will diurese with furosemide 20 mg IV once and then talk to cardiology about starting the patient on low-dose furosemide.
[2017-04-18 15:11] VITALS: BP 186/90
[2017-04-18 15:56] VITALS: BP 168/90
[2017-04-18 23:01] VITALS: BP 162/90
[2017-04-19 07:00] VITALS: BP 192/100
--- NOTE | 2017-04-19 08:24 | PN- Housestaff ---
Claude DUGAN,Stephon 04/19/17 0822: Subjective Follow-up For: Bradycardia, CHF Tele-Events Since Last Visit: SR 60-70 Subjective: No overnight events. Feels well this morining, no SOB, CP, or other comlaints. Review of Systems Constitutional: Reports: no symptoms. EENTM: Reports: no symptoms. Cardiovascular: Reports: no symptoms. Respiratory: Reports: no symptoms. Gastrointestinal: Reports: no symptoms. Genitourinary: Reports: no symptoms. Musculoskeletal: Reports: no symptoms. Skin: Reports: no symptoms. Neurological/Psychological: Reports: no symptoms. Hematologic/Endocrine: Reports: no symptoms. Immunologic/Allergic: Reports: no symptoms. Objective Last 24 Hrs of Vital Signs/I&O Vital Signs Date Time Temp Pulse Resp B/P B/P Pulse O2 O2 Flow FiO2 Mean Ox Delivery Rate 04/19 0815 75 192/100 04/19 0815 75 192/100 04/19 0702 75 192/100 04/19 0700 98.6 72 18 192/100 92 04/18 2301 97.9 86 16 162/90 94 04/18 2104 94 Room Air 04/18 2103 86 162/90 04/18 1600 Room Air 04/18 1556 168/90 04/18 1511 98.5 79 18 186/90 93 Room Air 04/18 1321 82 166/82 04/18 1202 71 200/90 04/18 1159 200/90 04/18 0957 70 200/90 04/18 0957 70 200/90 Intake & Output 04/19 1600 04/19 0800 04/19 0000 Intake Total 1210 Output Total 500 2500 Balance -500 -1290 Intake, Oral 1210 Output, Urine 500 2500 Physical Exam General Appearance: Alert, Oriented X3, Cooperative, No Acute Distress Cardiovascular: Regular Rate, Normal S1, Normal S2, no jvd Lungs: Clear to Auscultation Neurological: Normal Speech Extremities: 1+ pitting edema Current Medications: Current Medications Sig/Pia Start time Last Medication Dose Route Stop Time Status Admin Acetaminophen 650 MG Q6P PRN 04/16 2130 DC PO Amlodipine Besylate 5 MG DAILY 04/17 1145 AC 04/19 PO 0815 Apixaban 5 MG BID 04/17 1000 AC 04/19 PO 0815 Cholecalciferol 1,000 IU DAILY 01/18 1000 AC 04/19 PO 0816 Furosemide 40 MG .STK-MED ONE 04/18 1417 DC IV 04/18 1418 Furosemide 20 MG ONCE ONE 04/18 1345 DC 04/18 IV 04/18 1346 1422 Insulin Aspart 0 TIDAC 04/17 0800 AC 04/18 SC 1652 Labetalol HCl 200 MG BID 04/18 1045 AC 04/19 PO 0702 Lisinopril 40 MG DAILY 04/18 1000 AC 04/19 PO 0815 Metoprolol Tartrate 12.5 MG BID 04/17 1000 DC 04/18 PO 0957 Assessment/Plan Assessment: Mr. Witt is a 71-year-old male with past medical history of hypertension, diabetes mellitus, spinal stenosis, LAWSON noncompliant with CPAP, BPH, and iron deficiency anemia status post endoscopy and colonoscopy in December 2016 who was brought in by ambulance with dizziness and shortness of breath. Problem List 1. Bradycardia 2. New onset atrial fibrillation 3. Normocytic anemia 4. Recent Fall 5. Hypertension 6. HFpEF #HFpEF: Patient has history of HFpEF, stage 2 diastolic dysfunction. CXR yesterday showed fluid overload. He diuresed well -2L s/p 20mg furosemide IV. -Talk to cardiology about outpatient furosemide dose #Bradycardia: He remained hemodynamically stable. His heart rate has since increased and is now in the 70 to 90s. EKG and troponins 3 negative. -Telemetry monitoring -Appreciate cardiology recommendations #New onset atrial fibrillation: Patient says he has never had atrial fibrillation before. Still guaiac negative. CHADS2-VASC score 3, 3.2% risk of stroke per year. However, last night the patient converted to sinus rhythm. He has remained in sinus rhythm since then. -Continue apixiban #Hypertension: Patient has been hypertensive, this morning 170/84. -Appreciate cardiology recommendations -Continue lisinopril and amlodipine -labetelol #Normocytic anemia: Patient has history of iron deficiency anemia. He had a recent endoscopy and colonoscopy. Iron studies normal here. -Continue to monitor #Recent fall: Patient says that he recently fell out of bed because of a nightmare. We performed the facial CT yesterday that showed severe dental disease but no acute fracture. -Encourage patient to have dental follow-up #Chronic medical problems: -Continue vitamin D supplementation -Hold oral hypoglycemics -Accu-Cheks and insulin sliding scale DVT prophylaxis with apixiban Heart healthy diet Full code Problem List: 1. Atrial fibrillation with slow ventricular response Pain Ratin Pain Location: none Pain Goal: Remain pain free Pain Plan: see a/p Tomorrow's Labs & Rationales: none Isaac Coleman MD 04/19/17 0906: Attending MD Review Statement Attending Statement Attending MD Statement: examined this patient, discuss w/resident/PA/RETAIL SALESMAN, agreed w/resident/PA/RETAIL SALESMAN, discussed with family, reviewed EMR data (avail), discussed with nursing, discussed with case mgmt, reviewed images, amended to note Attending Assessment/Plan: Impression 71 year old man * Admitted for bradycardia, new onset a.fib * htn * anemia - chronic, normocytic * spinal stenosis * sleep apnea * stage 2 diastolic dysfunction Plan -cardiology following -f/u cardiology recommendations regarding possible discharge -excellent diuresis overnight - need to plan for discharge dose of lasix -labetalol for beta blockade -encouraged to pursue sleep apnea re-testing, information provided -bradycardia has resolved -on eliquis for stroke prevention -small effusions likely related to fluid overload DVT prophylaxis at all times will follow PT recommendations regarding need for home therapy. Okay for discharge once cardiology recommandations are made
--- NOTE | 2017-04-19 10:16 | PN- Student ---
Subjective Subjective: Follow Up For: Bradycardia,CHF No overnight events.Patient feels well this morning no chest pain or shortness of breath.Reports he slept well from 12am to around 6.30am this morning.Has no complaints.Patient concerned that he hasn't gotten of the bed and walked in a while,but will be seen by PT later today.Patient is also concerned about possible discharge as his aide is only available to him Mon - Fiday 10 am - 7pm. Review of Systems Constitutional: Reports: no symptoms. EENTM: Reports: no symptoms. Cardiovascular: Reports: no symptoms. Respiratory: Reports: no symptoms. Gastrointestinal: Reports: no symptoms. Genitourinary: Reports: no symptoms. Musculoskeletal: Reports: no symptoms. Skin: Reports: no symptoms. Neurological/Psychological: Reports: no symptoms. Hematologic/Endocrine: Reports: no symptoms. Immunologic/Allergic: Reports: no symptoms. Objective Objective: Vital Signs Date Time Temp Pulse Resp B/P B/P Pulse O2 O2 Flow FiO2 Mean Ox Delivery Rate 04/19 0815 75 192/100 04/19 0815 75 192/100 04/19 0702 75 192/100 04/19 0700 98.6 72 18 192/100 92 04/18 2301 97.9 86 16 162/90 94 04/18 2104 94 Room Air 04/18 2103 86 162/90 04/18 1600 Room Air 04/18 1556 168/90 04/18 1511 98.5 79 18 186/90 93 Room Air Intake & Output 04/19 1600 04/19 0800 04/19 0000 Intake Total 900 1210 Output Total 3641 532 7948 Balance -300 -500 -1290 Intake, Oral 900 1210 Output, Urine 7823 649 8555 Physical Exam Physical Exam General Appearance: no apparent distress, alert, awake, comfortable Respiratory: normal breath sounds Cardiovascular: regular rate/rhythm (Normal S1,S2 heard) Gastrointestinal: normal bowel sounds, soft, non-tender Extremities: swelling ( +1 pitting edema bilaterally) Results Results: Laboratory Tests 04/19/17 0855: Anion Gap 14, Estimated GFR > 60, BUN/Creatinine Ratio 16.4 04/18/17 0610: Anion Gap 12, Estimated GFR > 60, BUN/Creatinine Ratio 20.9, Iron 54, TIBC 397, Ferritin 23.9, Total Beta HCG NEGATIVE, CBC w Diff NO MAN DIFF REQ, RBC 3.56 L, MCV 80.9, MCH 26.9 L, RDW 16.1 H, MPV 8.7, Gran % 72.4, Lymphocytes % 16.0 L, Monocytes % 10.1 H, Eosinophils % 1.1, Basophils % 0.4, Absolute Granulocytes 3.9, Absolute Lymphocytes 0.9 L, Absolute Monocytes 0.5, Absolute Eosinophils 0.1, Absolute Basophils 0, PUBS MCHC 33.2 04/17/17 0900: APTT Cancelled 04/17/17 0310: Troponin I 0.02 04/17/17 0310: Anion Gap 12, Estimated GFR > 60, BUN/Creatinine Ratio 28.0 H, CBC w Diff NO MAN DIFF REQ, RBC 3.61 L, MCV 82.3, MCH 26.5 L, RDW 16.2 H, MPV 8.4, Gran % 70.5, Lymphocytes % 18.8 L, Monocytes % 8.6, Eosinophils % 1.8, Basophils % 0.3 , Absolute Granulocytes 3.3, Absolute Lymphocytes 0.9 L, Absolute Monocytes 0.4 , Absolute Eosinophils 0.1, Absolute Basophils 0, PUBS MCHC 32.2 L 04/17/17 0100: APTT 50 H 04/16/17 2150: Troponin I < 0.01 04/16/17 1515: Anion Gap 15, Estimated GFR > 60, BUN/Creatinine Ratio 32.0 H, Glucose 147 H, Calcium 9.3, Magnesium 1.8, Troponin I < 0.01, Rou-G-Nvtvtesnvrx Pept 943 H, TSH 4.320 H, Free T4 1.43, PT 11.2, INR 1.07, APTT 40 H, CBC w Diff NO MAN DIFF REQ, RBC 3.81 L, MCV 82.1, MCH 26.3 L, RDW 16.5 H, MPV 9.4, Gran % 72.1, Lymphocytes % 16.5 L, Monocytes % 9.2, Eosinophils % 1.8, Basophils % 0.4, Absolute Granulocytes 4.1, Absolute Lymphocytes 0.9 L, Absolute Monocytes 0.5, Absolute Eosinophils 0.1, Absolute Basophils 0, PUBS MCHC 32.0 L Physical Exam Core Measures ACS in differential dx? Yes CVA/TIA Diagnosis: No Sepsis Present: No Sepsis Focused Exam Completed? No Assessment/Plan Assessment: Gurvinder Witt is a 71 year old male with a past medical history diabetes on metformin,iron deficiency anemia post endoscopy and colonscopy December 2016,bph, spinal stenosis post laminectomy and spinal surgery,HTN on metoprolol,lisinopril and hydralazine,LAWSON not compliant w/ CPAP brought in by ambulance with dizziness and shortness of breath. Problem List * Bradycardia * New Onset Atrial Fibrillation * hypertention * HFpEF Plan: * Bradycardia Patient is stable. His heart rate has since increased and is now in the 70 to 90s. EKG and troponins 3 negative. -Telemetry monitoring -Appreciate cardiology recommendations -nuclear stress test outpatien * New onset A FIBB Patient reports that he does not have a history of A Fibb.Guiac is negative.CHADS-VASC score is 3.Patient last night has converted to sinus rhythm last night and has remained that way to date. -continue anticoagulation with apixiban * Hypertention The patients BP this morning was 170/84 indicating that he is hypertensive as per cardiology reccomendations he was started on amlodipine + lisinopril. -appreciate cardiology reccomendations -continue amlodipine + lisinopril + labetelol * HFpEF Patient's Echo indicates a history of HFpEf with stage 2 diastolic dysfunction.Chest Xray yesterday showed evidende of fluid overload.As a result the patient was diuresed on furosemide with a net output of approximately -2L. -talk to cardiology about patients out patient furosemide dose -appreciate cardiolgy reccomendations. DVT prophylaxis with apixiban Heart healthy diet Full code
[2017-04-19 14:00] VITALS: BP 190/80
--- NOTE | 2017-04-19 18:32 | PN- Cardiology ---
Subjective Subjective: No complaints. Objective Vital Signs and I&Os Vital Signs Date Time Temp Pulse Resp B/P B/P Pulse O2 O2 Flow FiO2 Mean Ox Delivery Rate 04/19 1400 97.0 79 18 190/80 94 Room Air 04/19 0815 75 192/100 04/19 0815 75 192/100 04/19 0702 75 192/100 04/19 0700 98.6 72 18 192/100 92 04/18 2301 97.9 86 16 162/90 94 04/18 2104 94 Room Air 04/18 2103 86 162/90 Intake & Output 04/19 1600 04/19 0800 04/19 0000 04/18 1600 04/18 0800 04/18 0000 Intake Total 900 1210 600 300 Output Total 9557 651 3964 1000 700 850 Balance -300 -500 -1290 -400 -400 -850 Intake, Oral 900 1210 600 300 Number 1 Bowel Movements Output, Urine 5549 158 9722 1000 700 850 Physical Exam: Well-developed, well-nourished and in no distress. VS: See above. Neck: No JVD, no bruits. Lungs: Few basilar crackles. Heart: S1, S2 (regular) with grade 2/6 systolic ejection murmur at left sternal border. Abdomen: Soft, nontender, positive bowel sounds. Extremities: No cyanosis, clubbing, or edema. Current Medications: Current Medications Sig/Pia Start time Last Medication Dose Route Stop Time Status Admin Amlodipine Besylate 5 MG DAILY 04/17 1145 AC 04/19 PO 0815 Apixaban 5 MG BID 04/17 1000 AC 04/19 PO 0815 Cholecalciferol 1,000 IU DAILY 04/17 1000 AC 04/19 PO 0816 Insulin Aspart 0 TIDAC 04/17 0800 AC 04/19 NE 1642 Labetalol HCl 200 MG BID 04/18 1045 AC 04/19 PO 0702 Lisinopril 40 MG DAILY 04/18 1000 AC 04/19 PO 0815 Results Last 48 Hrs of Labs/Mics: Laboratory Tests 04/19/17 0855: Anion Gap 14, Estimated GFR > 60, BUN/Creatinine Ratio 16.4 04/18/17 0610: Anion Gap 12, Estimated GFR > 60, BUN/Creatinine Ratio 20.9, Iron 54, TIBC 397, Ferritin 23.9, Total Beta HCG NEGATIVE, CBC w Diff NO MAN DIFF REQ, RBC 3.56 L, MCV 80.9, MCH 26.9 L, RDW 16.1 H, MPV 8.7, Gran % 72.4, Lymphocytes % 16.0 L, Monocytes % 10.1 H, Eosinophils % 1.1, Basophils % 0.4, Absolute Granulocytes 3.9, Absolute Lymphocytes 0.9 L, Absolute Monocytes 0.5, Absolute Eosinophils 0.1, Absolute Basophils 0, PUBS MCHC 33.2 Recent Imaging Studies: CXR 04/18/2017: CHF with small pleural effusions. Assessment/Plan Assessment/Plan 71 -y-o-w-m w/ hx AF w/ SVR, HTN, & LAWSON w/ CPAP noncompliance. AF w/ SVR: Bradycardic response improved w/ holding the combination of diltiazem and metoprolol, and he spontaneously converted to SR which he has been maintaining w / rates in the 60-70 bpm range. Continue full anticoagulation. HTN: Continue on labetalo 200 mg twice daily and increase amlodipine from 5 mg daily to 10 mg daily. Follow-up as an outpatient. LAWSON: Potential etiology for his AF & continue to stress need for CPAP compliance. DVT prophylaxis: Being addressed by anticoagulation for his chronic AF. Continue telemetry? No
[2017-04-19 21:50] VITALS: BP 200/98
[2017-04-19 22:55] VITALS: BP 210/100
[2017-04-19 23:56] VITALS: BP 210/94
[2017-04-20 07:00] VITALS: BP 170/92
[2017-04-20 08:34] VITALS: BP 174/86
--- NOTE | 2017-04-20 08:51 | PN- Housestaff ---
Coreen Marvin MD,Ami 04/20/17 0851: Subjective Follow-up For: Bradycardia, CHF Tele-Events Since Last Visit: Sr 60-75 Subjective: Patient visited today, was lying in bed comfortably in no acute distress, was alert and oriented. He reported no chest pain, palpitation, shortness of breathing, but reported increased urination (explained to patient that this is related to Lasix that we are administering) No fever or chills, no shortness of breathing, no chest pain. Overnight blood pressure was in 200s and extra doses of amlodipine and hydralazine were administered. Considering unstable blood pressure patient was not discharged with plan for monitoring for 1 extra day and discharged tomorrow. Review of Systems Constitutional: Reports: see HPI. Objective Last 24 Hrs of Vital Signs/I&O Vital Signs Date Time Temp Pulse Resp B/P B/P Pulse O2 O2 Flow FiO2 Mean Ox Delivery Rate 04/20 1400 98.0 60 20 146/70 96 04/20 0834 69 174/86 04/20 0729 63 210/102 04/20 0729 98.3 63 210/102 04/20 0729 63 210/102 04/20 0700 98.3 61 18 170/92 94 04/20 0038 65 204/96 04/19 2356 66 210/94 04/19 2255 63 210/100 04/19 2255 63 210/100 04/19 2254 97.7 62 16 95 Room Air 04/19 2150 65 200/98 04/19 2150 65 200/98 Intake & Output 04/20 1600 04/20 0800 04/20 0000 Intake Total 650 Output Total 800 1025 1750 Balance -150 -1025 -1750 Intake, Oral 650 Output, Urine 800 1025 1750 Physical Exam General Appearance: Alert, Oriented X3, Cooperative, No Acute Distress Skin: Chronic skin changes over bilateral legs Skin Temp/Moisture Exam: Warm/Dry Sepsis Skin Exam (color): Normal for Ethnicity HEENT: Atraumatic, EOMI, Mucous Membr. moist/pink Cardiovascular: Regular Rate, Normal S1, Normal S2, systolic murmur Lungs: Clear to Auscultation Abdomen: Soft, No Tenderness Extremities: as noted above Current Medications: Current Medications Sig/Pia Start time Last Medication Dose Route Stop Time Status Admin Amlodipine Besylate 10 MG DAILY 01/21 1000 AC 04/20 PO 0729 Amlodipine Besylate 5 MG ONCE ONE 04/19 2300 DC 04/19 PO 04/19 2301 2255 Amlodipine Besylate 5 MG DAILY 04/17 1145 DC 04/19 PO 0815 Apixaban 5 MG BID 04/17 1000 AC 04/20 PO 0728 Cholecalciferol 1,000 IU DAILY 04/17 1000 AC 04/20 PO 0729 Furosemide 10 MG ONCE ONE 04/19 1845 DC 04/19 IV 04/19 1846 1850 Furosemide 40 MG .STK-MED ONE 04/19 1842 DC IV 04/19 1843 Hydralazine HCl 10 MG ONCE ONE 04/19 2345 DC 04/20 PO 04/19 2346 0038 Insulin Aspart 0 TIDAC 04/17 0800 AC 04/20 SC 1658 Labetalol HCl 200 MG BID 04/18 1045 AC 04/20 PO 0729 Lisinopril 40 MG DAILY 04/18 1000 AC 04/20 PO 0729 Assessment/Plan Assessment: Mr. Witt is a 71-year-old male with past medical history of hypertension, diabetes mellitus, spinal stenosis, LAWSON noncompliant with CPAP, BPH, and iron deficiency anemia status post endoscopy and colonoscopy in December 2016 who was brought in by ambulance with dizziness and shortness of breath. Problem List 1. Bradycardia 2. New onset atrial fibrillation 3. Normocytic anemia 4. Recent Fall 5. Hypertension 6. HFpEF #HFpEF: Patient has history of HFpEF, stage 2 diastolic dysfunction. CXR yesterday showed fluid overload. He diuresed well -2L s/p 20mg furosemide IV. -Talk to cardiology about outpatient furosemide dose #Bradycardia: He remained hemodynamically stable. His heart rate has since increased and is now in the 70 to 90s. EKG and troponins 3 negative. -Telemetry monitoring -Appreciate cardiology recommendations #New onset atrial fibrillation: Patient says he has never had atrial fibrillation before. Still guaiac negative. CHADS2-VASC score 3, 3.2% risk of stroke per year. However, last night the patient converted to sinus rhythm. He has remained in sinus rhythm since then. -Continue apixiban #Hypertension: Patient has been hypertensive Received extra doses of medication overnight. This morning was stable in 170s. -Appreciate cardiology recommendations -Continue lisinopril and amlodipine -labetelol - cardiology recommendations regarding blood pressure medication #Normocytic anemia: Patient has history of iron deficiency anemia. He had a recent endoscopy and colonoscopy. Iron studies normal here. -Continue to monitor #Recent fall: Patient says that he recently fell out of bed because of a nightmare. We performed the facial CT yesterday that showed severe dental disease but no acute fracture. -Encourage patient to have dental follow-up #Chronic medical problems: -Continue vitamin D supplementation -Hold oral hypoglycemics -Accu-Cheks and insulin sliding scale DVT prophylaxis with apixiban Heart healthy diet Full code Problem List: 1. Atrial fibrillation with slow ventricular response 2. Bradycardia Pain Ratin Pain Location: none at the time of interview Pain Goal: Pain 4 or less Pain Plan: Continue current plan Tomorrow's Labs & Rationales: Cbc Isaac Bronson MD 04/20/17 1025: Attending MD Review Statement Attending Statement Attending MD Statement: examined this patient, discuss w/resident/PA/BENZENE WORKER, agreed w/resident/PA/BENZENE WORKER, discussed with family, reviewed EMR data (avail), discussed with nursing, discussed with case mgmt, reviewed images, amended to note Attending Assessment/Plan: Impression 71 year old man * RESOLVED, new onset a.fib now on eliquis * htn - still poorly controlled * anemia - chronic, normocytic * spinal stenosis * sleep apnea * stage 2 diastolic dysfunction Plan -given BP in 200's and still elevated (although improved with the current regimen) we will observe the patient until tomorrow and at that time we will plan for discharge if no events, please ensure PT is arranged for home -cardiology following -f/u cardiology recommendations -continue diuresis and monitor ins/outs -labetalol for beta blockade -encouraged to pursue sleep apnea re-testing, information provided -bradycardia has resolved -on eliquis for stroke prevention -small effusions likely related to fluid overload DVT prophylaxis at all times will follow PT recommendations regarding need for home therapy. Okay for discharge once cardiology recommandations are made Advised to follow up for retesting and re-evaluation for sleep apnea. please include in discharge instructions to f/u for sleep apnea testing, contact given to patient
[2017-04-20 14:00] VITALS: BP 146/70
[2017-04-20 23:03] VITALS: BP 164/90
[2017-04-21 06:53] VITALS: BP 178/88
--- NOTE | 2017-04-21 06:55 | PN- Housestaff ---
See Addendum Subjective Follow-up For: chf, HTN Tele-Events Since Last Visit: SR, 60s Subjective: No overnight events. Feels good this morning, no CP or SOB. Wondering why his blood pressure is high and looking to go home. Review of Systems Constitutional: Reports: no symptoms. EENTM: Reports: no symptoms. Cardiovascular: Reports: no symptoms. Respiratory: Reports: no symptoms. Gastrointestinal: Reports: no symptoms. Genitourinary: Reports: no symptoms. Musculoskeletal: Reports: no symptoms. Skin: Reports: no symptoms. Neurological/Psychological: Reports: no symptoms. Hematologic/Endocrine: Reports: no symptoms. Immunologic/Allergic: Reports: no symptoms. Objective Last 24 Hrs of Vital Signs/I&O Vital Signs Date Time Temp Pulse Resp B/P B/P Pulse O2 O2 Flow FiO2 Mean Ox Delivery Rate 04/21 0653 98.8 64 20 178/88 96 Room Air 04/21 0652 64 178/88 04/20 2303 98.7 62 20 164/90 94 Room Air 04/20 1400 98.0 60 20 146/70 96 04/20 0834 69 174/86 04/20 0729 63 210/102 04/20 0729 98.3 63 210/102 04/20 0729 63 210/102 04/20 0700 98.3 61 18 170/92 94 Intake & Output 04/21 0800 04/21 0000 04/20 1600 Intake Total 300 300 650 Output Total 650 1050 800 Balance -350 -750 -150 Intake, Oral 300 300 650 Output, Urine 650 1050 800 Physical Exam General Appearance: Alert, Oriented X3, Cooperative, No Acute Distress Cardiovascular: Regular Rate, Normal S1, Normal S2 Lungs: mild crackles Abdomen: Normal Bowel Sounds, Soft, No Tenderness Extremities: erythematous but without edema Current Medications: Current Medications Sig/Pia Start time Last Medication Dose Route Stop Time Status Admin Amlodipine Besylate 10 MG DAILY 04/20 1000 AC 04/21 PO 0652 Apixaban 5 MG BID 04/17 1000 AC 04/20 PO 2106 Cholecalciferol 1,000 IU DAILY 04/17 1000 AC 04/20 PO 0729 Insulin Aspart 0 TIDAC 04/17 0800 AC 04/20 SC 1658 Labetalol HCl 200 MG BID 04/18 1045 AC 04/20 PO 2106 Lisinopril 40 MG DAILY 04/18 1000 AC 04/20 PO 0729 Assessment/Plan Assessment: Mr. Witt is a 71-year-old male with past medical history of hypertension, diabetes mellitus, spinal stenosis, LAWSON noncompliant with CPAP, BPH, and iron deficiency anemia status post endoscopy and colonoscopy in December 2016 who was brought in by ambulance with dizziness and shortness of breath. Problem List 1. Bradycardia 2. New onset atrial fibrillation 3. Normocytic anemia 4. Recent Fall 5. Hypertension 6. HFpEF #HFpEF: Patient has history of HFpEF, stage 2 diastolic dysfunction. CXR showed fluid overload. He diuresed well, not having further shortness of breath. -Talk to cardiology about outpatient furosemide dose #Bradycardia: He remained hemodynamically stable. His heart rate has since increased and is now in the 70 to 90s. EKG and troponins 3 negative. -Telemetry monitoring -Appreciate cardiology recommendations #New onset atrial fibrillation: Patient says he has never had atrial fibrillation before. Still guaiac negative. CHADS2-VASC score 3, 3.2% risk of stroke per year. However, the patient converted to sinus rhythm. He has remained in sinus rhythm. -Continue apixiban #Hypertension: Patient has been hypertensive, difficult to control. -Appreciate cardiology recommendations -Continue lisinopril and amlodipine -labetelol -Consider starting hydralazine or other antihypertensive #Normocytic anemia: Patient has history of iron deficiency anemia. He had a recent endoscopy and colonoscopy. Iron studies normal here. -Continue to monitor #Recent fall: Patient says that he recently fell out of bed because of a nightmare. We performed the facial CT yesterday that showed severe dental disease but no acute fracture. -Encourage patient to have dental follow-up #Chronic medical problems: -Continue vitamin D supplementation -Hold oral hypoglycemics -Accu-Cheks and insulin sliding scale DVT prophylaxis with apixiban Heart healthy diet Full code Problem List: 1. Atrial fibrillation with slow ventricular response Pain Ratin Pain Location: no Pain Goal: Remain pain free Pain Plan: see a/p Tomorrow's Labs & Rationales: none
--- NOTE | 2017-04-21 07:16 | PN- Student ---
Subjective Subjective: Progress Note Follow up for : AFIBB/HTN No Overnight events.Patient slept through the night confortably and felt good today.Reports no SOB or chest pain or chest tightness.Would like to go home and wonders why his medication is not controlling his BP. Review of Systems Constitutional: Reports: no symptoms. EENTM: Reports: no symptoms. Cardiovascular: Reports: no symptoms. Respiratory: Reports: no symptoms. Gastrointestinal: Reports: no symptoms. Genitourinary: Reports: no symptoms. Musculoskeletal: Reports: no symptoms. Skin: Reports: no symptoms. Neurological/Psychological: Reports: no symptoms. Hematologic/Endocrine: Reports: no symptoms. Immunologic/Allergic: Reports: no symptoms. Objective Objective: Vital Signs Date Time Temp Pulse Resp B/P B/P Pulse O2 O2 Flow FiO2 Mean Ox Delivery Rate 04/21 0653 98.8 64 20 178/88 96 Room Air 04/21 0652 64 178/88 Intake & Output 04/21 1600 04/21 0800 04/21 0000 Intake Total 300 300 Output Total 650 1050 Balance -350 -750 Intake, Oral 300 300 Output, Urine 650 1050 PHYSICAL EXAM General Appearance: Alert, Oriented X3, Cooperative, No Acute Distress Cardiovascular: Regular Rate, Normal S1, Normal S2 Lungs: clear to ascultation Abdomen: Normal Bowel Sounds, Soft, No Tenderness Extremities: erythematous but without edema,cap refil within normal limits. Current Medications Sig/Pia Start time Last Medication Dose Route Stop Time Status Admin Amlodipine Besylate 10 MG DAILY 04/20 1000 AC 04/21 PO 0652 Apixaban 5 MG BID 04/17 1000 AC 04/20 PO 2106 Cholecalciferol 1,000 IU DAILY 04/17 1000 AC 04/20 PO 0729 Insulin Aspart 0 TIDAC 04/17 0800 AC 04/20 SC 1658 Labetalol HCl 200 MG BID 04/18 1045 AC 04/20 PO 210 Lisinopril 40 MG DAILY 04/18 1000 AC 04/20 PO 07 Results Results: Laboratory Tests 04/21/17 0700: Sodium Pending, Potassium Pending, Chloride Pending, Carbon Dioxide Pending, Anion Gap Pending, BUN Pending, Creatinine Pending, BUN/Creatinine Ratio Pending , CBC w Diff NO MAN DIFF REQ, RBC 3.82 L, MCV 80.5, MCH 26.7 L, RDW 15.6 H, MPV 8.1, Gran % 72.4, Lymphocytes % 12.3 L, Monocytes % 9.9 H, Eosinophils % 5.0, Basophils % 0.4, Absolute Granulocytes 4.5, Absolute Lymphocytes 0.8 L, Absolute Monocytes 0.6, Absolute Eosinophils 0.3, Absolute Basophils 0, PUBS MCHC 33.1 04/19/17 0855: Anion Gap 14, Estimated GFR > 60, BUN/Creatinine Ratio 16.4 Assessment/Plan Assessment: Gurvinder Witt is a 71 year old male with a past medical history diabetes on metformin,iron deficiency anemia post endoscopy and colonscopy December 2016,bph, spinal stenosis post laminectomy and spinal surgery,HTN on metoprolol,lisinopril and hydralazine,LAWSON not compliant w/ CPAP brought in by ambulance with dizziness and shortness of breath. Problem List * HFpEF * hypertention * Bradycardia * New Onset Atrial Fibrillation Plan: * HFpEF Patient's Echo indicates a history of HFpEf with stage 2 diastolic dysfunction.Chest Xray showed evidendce of fluid overload.As a result the patientis being diuresed on furosemide and has been successful with a net output of -350 today thus far and a daily average of approximately -2L. -talk to cardiology about patients out patient furosemide dose -appreciate cardiolgy reccomendations. * Hypertention The patients BP this morning was 178/88 iand has been hypertensive overnight with a high of 210/102.Recieved extra doses of medication over night.BP has been stable in the 170's this morning. -appreciate cardiology reccomendations -continue amlodipine + lisinopril + labetelol * Bradycardia: He remained hemodynamically stable. His heart rate has since increased and is now in the 70 to 90s. EKG and troponins 3 negative. -Telemetry monitoring -Appreciate cardiology recommendations * New Onset Atrial Fibrillation Patient says he has never had atrial fibrillation before. Still guaiac negative. CHADS2-VASC score 3. However, the patient converted to sinus rhythm. -continue apixiban Chronic medical problems: -Continue vitamin D supplementation -Hold oral hypoglycemics -Accu-Cheks and insulin sliding scale DVT prophylaxis with apixiban Heart healthy diet Full code
[2017-04-21 08:24] LABS: ABSOLUTE BASOPHIL COUNT 0 /CUMM (0.0-0.2); ABSOLUTE EOSINOPHIL COUNT 0.3 /CUMM (0.0-0.7); ABSOLUTE GRANULOCYTE CT 4.5 /CUMM (1.4-6.5); ABSOLUTE LYMPH COUNT 0.8 /CUMM (1.2-3.4); ABSOLUTE MONOCYTE COUNT 0.6 /CUMM (0.10-0.60); BASOPHIL % 0.4 % (0.0-2.0); GRANULOCYTE % 72.4 % (42.2-75.2); HEMATOCRIT 30.8 % (42-52); MEAN CORPUSCULAR HGB 26.7 PG (27.0-31.0); MEAN CORPUSCULAR HGB CONC 33.1 G/DL (33.0-37.0); MEAN CORPUSCULAR VOLUME 80.5 FL (80.0-94.0); MEAN PLATELET VOLUME 8.1 FL (7.4-10.4); PLATELET COUNT 225 /CUMM (130-400); RBC DISTRIBUTION WIDTH 15.6 % (11.5-14.5); RED BLOOD CELL CT 3.82 /CUMM (4.70-6.10); WHITE BLOOD CELL COUNT 6.3 /CUMM (4.8-10.8)
--- NOTE | 2017-04-21 10:07 | PN- Pulmonary ---
Subjective HPI/Critical Care Issues: pt seen and examined anticipating dc doing well and comfortable Objective Current Medications: Current Medications Sig/Pia Start time Last Medication Dose Route Stop Time Status Admin Amlodipine Besylate 10 MG DAILY 04/20 1000 AC 04/21 PO 0652 Apixaban 5 MG BID 04/17 1000 AC 04/21 PO 0916 Cholecalciferol 1,000 IU DAILY 04/17 1000 AC 04/21 PO 0916 Hydralazine HCl 25 MG TID 04/21 1000 AC PO Insulin Aspart 0 TIDAC 04/17 0800 AC 04/20 SC 1658 Labetalol HCl 200 MG BID 04/18 1045 AC 04/21 PO 0916 Lisinopril 40 MG DAILY 04/18 1000 AC 04/21 PO 0915 Vital Signs & I&O Last 24 Hrs of Vitals and I&O: Vital Signs Date Time Temp Pulse Resp B/P B/P Pulse O2 O2 Flow FiO2 Mean Ox Delivery Rate 04/21 0916 61 160/72 04/21 0915 61 160/72 04/21 0653 98.8 64 20 178/88 96 Room Air 04/21 0652 64 178/88 04/20 2303 98.7 62 20 164/90 94 Room Air 04/20 1400 98.0 60 20 146/70 96 Intake & Output 04/21 1600 04/21 0800 04/21 0000 Intake Total 360 300 300 Output Total 725 964 6991 Balance 210 -350 -750 Intake, Oral 360 300 300 Output, Urine 696 255 7844 Exam Other Physical Findings: Generally - Awake, alert and comfortable without distress Head and neck - normocephalic, atraumatic, EOMI grossly intact Cardiovascular - S1, S2 Lungs - overall clear, scattered rare rhonchi Abdomen - Bowel sounds positive, soft, non-tender Extremities - chronic venous stasis Results Last 24 Hrs of Lab Results: Laboratory Tests 04/21/17 0700: Anion Gap 12, Estimated GFR > 60, BUN/Creatinine Ratio 19.0, CBC w Diff NO MAN DIFF REQ, RBC 3.82 L, MCV 80.5, MCH 26.7 L, RDW 15.6 H, MPV 8.1, Gran % 72.4, Lymphocytes % 12.3 L, Monocytes % 9.9 H, Eosinophils % 5.0, Basophils % 0.4, Absolute Granulocytes 4.5, Absolute Lymphocytes 0.8 L, Absolute Monocytes 0.6, Absolute Eosinophils 0.3, Absolute Basophils 0, PUBS MCHC 33.1 Impression/Plan Impression/Plan Impression/Plan: Impression 71 year old man * RESOLVED, new onset a.fib now on eliquis * htn - still poorly controlled * anemia - chronic, normocytic * spinal stenosis * sleep apnea * stage 2 diastolic dysfunction Plan -f/u cardiology recommendations -continue diuresis and monitor ins/outs -labetalol for beta blockade -encouraged to pursue sleep apnea re-testing, information provided -bradycardia has resolved -on eliquis for stroke prevention -small effusions likely related to fluid overload DVT prophylaxis at all times will follow PT recommendations regarding need for home therapy. Okay for discharge once cardiology recommandations are made Advised to follow up for retesting and re-evaluation for sleep apnea. please include in discharge instructions to f/u for sleep apnea testing, contact given to patient
[2017-04-21] MEDS ORDERED: HYDRALAZINE HCL25 M1 PO ×3 (10:11→13:28)
[2017-04-21] MEDS ORDERED: NORVASC10 M1 PO ×3 (10:11→13:28)
[2017-04-21 11:02] VITALS: BP 160/70
--- NOTE | 2017-04-21 11:14 | Discharge Summary ---
See Addendum Visit Information Visit Dates Admission Date: 04/16/17 Discharge Date: 04/21/17 Hospital Course Course Attending Physician: Nahun DUGAN,Manuel Anglin Primary Care Physician: Gage Lopez MD Hospital Course: Mr. Witt is a 71-year-old male with past medical history of hypertension, diabetes mellitus, spinal stenosis, LAWSON noncompliant with CPAP, BPH, and iron deficiency anemia status post endoscopy and colonoscopy in December 2016 who was brought in by ambulance with dizziness and shortness of breath. On presentation, vital signs were HR 38, RR 18, BP 113/66, saturating 97% on room air. Laboratories were significant for white blood cell count 5.6, hemoglobin 10.0, MCV 82.1, BUN 32, creatinine 1.0, magnesium 1.8, troponin less than 0.01, BNP 993. He was admitted to telemetry and treated for the following problem: 1. Bradycardia 2. New onset atrial fibrillation 3. Normocytic anemia 4. Recent Fall 5. Hypertension 6. HFpEF #Bradycardia: Patient presented with shortness of breath and was found to have heart rate 38 with atrial flutter ablation. Cardiology was consulted. After first night of admission, he converted back to sinus rhythm and remained in sinus the entire time thereafter. He remained hemodynamically stable. EKG and troponins 3 negative. He will follow up with cardiology as an outpatient. #New onset atrial fibrillation: Patient says he has never had atrial fibrillation before. Still guaiac negative. CHADS2-VASC score 3, 3.2% risk of stroke per year. However, the patient converted to sinus rhythm. He has remained in sinus rhythm. He was started on apixiban and should continue with this. #HFpEF: Patient has history of HFpEF, stage 2 diastolic dysfunction. CXR showed fluid overload. TTE did reveal EF 60-65% with a pseudo-normal filling pattern and stage II diastolic dysfunction. He also has moderate pulmonary hypertension with RV pressure 50 mmHg. He diuresed well on low-dose furosemide, not having further shortness of breath. #Hypertension: Patient has been hypertensive during his hospital stay, difficult to control. Cardiology was consulted, he was started on labatelol, amlodipine, hydralazine. Lisinopril was continued. He should follow up with primary care to have his blood pressure checked. #Normocytic anemia: Patient has history of iron deficiency anemia. He had a recent endoscopy and colonoscopy. Iron studies normal here. #Recent fall: Patient says that he recently fell out of bed because of a nightmare. We performed the facial CT that showed severe dental disease but no acute fracture. Patient should follow-up with a dentist. #Chronic medical problems: -Vitamin D supplementation was continued. Oral hypoglycemics were held. Patient was maintained on Accu-Cheks and insulin sliding scale. Allergies: Coded Allergies: Penicillins (ANAPHYLAXIS 09/06/15) Disposition Summary Disposition Principal Diagnosis: 1. Bradycardia Additional Diagnosis: 2. New onset atrial fibrillation 3. Normocytic anemia 4. Recent Fall 5. Hypertension 6. HFpEF Discharge Disposition: home health services Discharge Instructions General Discharge Information Code Status: Full Code Patient's Diet: Heart healthy, Na restricted to 2g daily Patient's Activity: As tolerated Follow-Up Instructions/Appts: Please take all medications as directed. Please follow-up with primary care for blood pressure management. Please follow-up with cardiology as well. Please follow-up with the quantitative software engineer for CPAP. Medications at Discharge Discharge Medications: Stop taking the following medications: Hydralazine HCl (Hydralazine HCl) 50 MG TABLET ORAL THREE TIMES DAILY Diltiazem HCl (Diltiazem 24HR ER) 240 MG CAP.ER.24H ORAL DAILY Metoprolol Tartrate (Lopressor) 50 MG TABLET ORAL TWICE DAILY Continue taking these medications: Cholecalciferol (Vitamin D3) (Vitamin D3) 1,000 UNIT CAPSULE 1 Capsule ORAL DAILY Comments: Last Taken: 04/21/17 Time: 9:15 AM Lisinopril (Lisinopril) 40 MG TABLET 1 Tablet ORAL DAILY Comments: Last Taken: 04/21/17 Time: 9:15 AM Aspirin (Ecotrin*) 81 MG TABLET.DR 1 Tablet ORAL DAILY Comments: NOT GIVEN IN HOSPITAL Metformin HCl (Metformin HCl) 1,000 MG TABLET 1 Tablet ORAL TWICE DAILY Qty = 180 Comments: NOT GIVEN IN HOSPITAL Tamsulosin HCl (Tamsulosin HCl) 0.4 MG CAP.ER.24H 1 Capsule ORAL Every night Qty = 90 Comments: NOT GIVEN IN HOSPITAL Start taking the following new medications: Apixaban (Eliquis) 5 MG TABLET 5 Milligram ORAL TWICE DAILY Qty = 60 No Refills Comments: Last Taken: 04/21/17 Time: 9:15 AM Hydralazine HCl (Hydralazine HCl) 25 MG TABLET 25 Milligram ORAL THREE TIMES DAILY Qty = 90 No Refills Comments: Last Taken: 04/21/17 Time: 11:30 AM Labetalol HCl (Labetalol HCl) 200 MG TABLET 200 Milligram ORAL TWICE DAILY Qty = 60 No Refills Comments: Last Taken: 04/21/17 Time: 9:15 AM Amlodipine Besylate (Norvasc) 10 MG TABLET 10 Milligram ORAL DAILY Qty = 30 No Refills Comments: Last Taken: 04/21/17 Time: 7:00 AM Copies To: Joan DUGAN,Jerry De León; Brian DUGAN,Vadim; [place] DUGAN,Isaac Attending MD Review Statement Documenting Attending: Nahun DUGAN,Manuel Anglin Other Findings: Agree with the above discharge plan. see separate note for more details.
[2017-04-21] MEDS ORDERED: LABETALOL HCL200 M1 PO ×2 (11:15→13:28)
[2017-04-21] MEDS ORDERED: ELIQUIS5 M1 PO ×2 (11:15→13:28)
[2017-04-21 13:28] VITALS: BP 144/74
== END 2017-04-21 16:05 | disposition home health service (06) | DRG 308 ==
LOC: ERH 13:55 → 1NO 17:55 → ERHI 17:55 → ENRESERV 18:13 → ENTRNSPT 19:53 → EDTRNSPTSTS 19:54 → 1NO 20:15 → CMPTRNSPT 20:31 → 1NO 04-17 07:36 → ENPENDDIS 04-21 11:11 → 1NO 04-21 16:05
PROVIDERS: Dermatology; Emergency Medicine; Internal Medicine; Radiology Vascular & Interventional Radiology; Student in an Organized Health Care Education/Training Program
DX: R00.1 Bradycardia, unspecified (principal); I50.33 Acute on chronic diastolic (congestive) heart failure; I27.29 Other secondary pulmonary hypertension; E11.9 Type 2 diabetes mellitus without complications; D50.9 Iron deficiency anemia, unspecified; G47.33 Obstructive sleep apnea (adult) (pediatric); I11.0 Hypertensive heart disease with heart failure; I48.91 Unspecified atrial fibrillation; I87.2 Venous insufficiency (chronic) (peripheral); T44.7X5A Adverse effect of beta-adrenoreceptor antagonists, initial encounter; Z79.84 Long term (current) use of oral hypoglycemic drugs; Z91.19 Patient's noncompliance with other medical treatment and regimen; N40.0 Benign prostatic hyperplasia without lower urinary tract symptoms; R01.1 Cardiac murmur, unspecified; I44.0 Atrioventricular block, first degree
CPT/HCPCS: 1NP; 36415; 71046; 82436; 93005; 93010; 93306; 96374; 97110-GO; 97116-GO; 97161-GP; 97530-GO; 99291; J1644; J1940; J3490